=== PATIENT | female | born 1980 | race African-American/Black ===

== ENCOUNTER 2021-06-02 15:32 | Emergency (ER) | payer OTHER, SELFPAY ==
[2021-06-02 15:42] VITALS: BP 104/63; BP 109/91; PULSE 73; PULSE 92; RESP 18; TEMP 36.6; O2SAT 96; O2SAT 98; BMI 30.2
--- NOTE | 2021-06-02 16:02 | ED.GENADULT ---
HPI - General Adult General Chief complaint: General Medical Stated complaint: crisis Time Seen by Provider: 06/02/21 15:47 History of Present Illness HPI narrative: Patient 41 years old presented today with having been picked up by the EMS service. Patient denies any suicidal homicidal ideation. Denies any recreational drug use. She was found next to a crack pipe. She may have drank some alcohol earlier. Patient has no complaints and wants to leave. EMS reports no suicidal homicidal ideation. Related Data Allergies Allergy/AdvReac Type Severity Reaction Status Date / Time divalproex sodium Allergy Mild CAUSES Unverified 05/05/20 17:02 [From DEPAKOTE] HAIR TO FALL OUT morphine [Morphine] Allergy Unknown UNKNOWN Unverified 05/05/20 17:02 clozapine [Clozapine] AdvReac Intermediate SEIZURE Unverified 05/05/20 17:02 Review of Systems Review of Systems: No fever no chills no cough no congestion All systems reviewed otherwise negative PMFSH Past Medical History Attestation statement: The following information was validated with the patient. Physical Exam Vital Signs: Vital Signs: Last Vital Signs Temp 98 F 06/02/21 15:42 Pulse 73 06/02/21 15:42 Resp 18 06/02/21 15:42 BP 104/63 06/02/21 15:42 Pulse Ox 98 06/02/21 15:42 Body Mass Index 30.2 Appearance: Alert. Oriented X3. No acute distress. Eyes: Pupils equal, round and reactive to light. ENT: Pharynx normal. Neck: Normal inspection. Neck supple. No lymph nodes noted. No crepitus CVS: Normal heart rate and rhythm. Pulses normal. Normal S1 and S2 Respiratory: No respiratory distress. Breath sounds normal. No Wheezing. No rales Abdomen: Soft and nontender. No rigidity. No distention. good BS x4 Skin: Skin warm and dry. Normal skin color. Normal skin turgor. Extremities: No lower extremity edema. Neurovascular intact to all extremities. No Lacerations. No Rash Neuro: Oriented X 3. No motor deficit. No sensory deficit. Moving all extermities. No slurred speech Medical Decision Making MDM Narrative Medical decision making narrative: No suicidal homicidal ideation. Patient awake alert oriented ambulate with a normal gait. Clinically sober. Wants to go home. Has no complaints. In stable condition. Discharge Plan Discharge Clinical Impression: Alcohol intoxication Patient Disposition: Home, Self-Care Instructions: Alcohol Intoxication (ED) Referrals: [facility] [Provider Group] - 2 days
== END 2021-06-02 16:20 | disposition home or self-care (01) ==
LOC: HO.ED 16:17
PROVIDERS: Emergency Provider Emergency Medicine Emergency Medical Services
DX: F10.129 Alcohol abuse with intoxication, unspecified (principal); Y90.9 Presence of alcohol in blood, level not specified
CPT/HCPCS: 99282

== ENCOUNTER 2021-11-13 19:39 | Inpatient (IN) | payer OTHER, SELFPAY ==
--- NOTE | ~2021-11-13 | CT_ITS ---
EXAMINATION: CT HEAD WITHOUT CONTRAST CLINICAL INFORMATION: Altered mental status. COMPARISON: Head CT from 05/22/2014. TECHNIQUE: Contiguous axial imaging was performed from the skull base to vertex without intravenous administration of contrast. This CT examination was performed using dose optimization techniques as appropriate, variously including the following: *Automated exposure control *Adjustment of mA and/or kV according to patient size (this includes techniques or standardized protocols for targeted exams where dose is matched to indication/reason for exam; i.e. extremities or head) *Use of iterative reconstruction technique DLP: 612 mGy-cm FINDINGS: There is no evidence of acute intracranial hemorrhage or territorial infarction. No abnormal mass effect or midline shift is seen. Hernandez to white matter differentiation is well preserved. No extra-axial fluid collections are identified. The ventricles are normal in size. Chronic encephalomalacia again visible in the anteroinferior frontal lobes and in the left temporal pole. The osseous structures and soft tissues are normal. The mastoid air cells and visualized portions of the paranasal sinuses are well aerated. CT/CT head/brain wo con IMPRESSION: No acute intracranial hemorrhage or territorial infarction. 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 Query for any history of prior traumatic brain injury to account for these imaging findings.
[2021-11-13 19:53] VITALS: BP 124/84; PULSE 80; RESP 17; TEMP 36.6; O2SAT 97; BMI 21.2
--- NOTE | 2021-11-13 20:08 | ED.PSYCH ---
HPI - Psych General Chief Complaint: Psychiatric Symptoms Stated Complaint: SEC 12 Time Seen by Provider: 11/13/21 19:56 Source: EMS Mode of arrival: EMS Limitations: other (Unwilling to talk) History of Present Illness HPI Narrative: Patient comes to the emergency room via EMS from a [facility]. [facility] evaluated the patient in the field and Section 12 the patient. Seems that the patient has been gradually decompensating, unable to engage in daily activities. Patient is unwilling to talk. Related Data Allergies Allergy/AdvReac Type Severity Reaction Status Date / Time divalproex sodium Allergy Mild CAUSES Unverified 05/05/20 17:02 [From DEPAKOTE] HAIR TO FALL OUT morphine [Morphine] Allergy Unknown UNKNOWN Unverified 05/05/20 17:02 clozapine [Clozapine] AdvReac Intermediate SEIZURE Unverified 05/05/20 17:02 Review of Systems Review of Systems: Unwilling to talk Yes Other [facility] Past Medical History Medical History (Updated 11/13/21 @ 20:14 by Yamilka Vicente MD) Depression, unspecified Social History Social History Patient : No Physical Exam Vital Signs: Vital Signs: Last Vital Signs Temp 98 F 11/13/21 19:53 Pulse 80 11/13/21 19:53 Resp 17 11/13/21 19:53 BP 124/84 11/13/21 19:53 Pulse Ox 97 11/13/21 19:53 BMI result Body Mass Index 21.2 Const: Other: Appearance: Alert. No acute distress, unwilling to talk Eyes: Pupils equal, round and reactive to light. ENT: Pharynx normal. Neck: Normal inspection. Neck supple. No lymph nodes noted. No crepitus CVS: Normal heart rate and rhythm. Respiratory: No respiratory distress. Breath sounds normal. Abdomen: Soft, Bueno nondistended Skin: Skin warm and dry. Normal skin color. Normal skin turgor. Extremities: Moves all extremities Neuro: No motor deficit. No sensory deficit. Moving all extremities. No slurred speech. CN 2 through 12 grossly intact Psych: calm, unwilling to talk, POD staff trying to have the patient exchange architect to hospital clothes, pt partially following instructions, unwilling to remove socks Course Course Course Narrative: Patient was Sectioned 12 by [facility] in the field. At this time, patient is unwilling to talk. Disposition pending, likely to be inpatient bed search. Physician observation started at 20:14 Sign-out given to Dr. Armas Discharge Plan Discharge Clinical Impression: Depression Patient Disposition: Still a Patient
[2021-11-13 20:20] LABS: Appearance Urine CLOUDY; Color Urine YELLOW; Glucose Urine UA NEG (NEG); Leukocyte Esterase Urine 2+ (NEG); Nitrite Urine NEG (NEG); Specific Gravity - Urine 1.015 (1.005-1.025); Urine Blood NEG (NEG); Urine Ketones NEG (NEG); Urine Protein NEG (NEG-TRACE)
[2021-11-13 20:22] LABS: UPreg QC Valid YES; Urine Pregnancy NEGATIVE (NEGATIVE)
[2021-11-13 20:32] LABS: Bacteria Urine 2+ /LPF; RBC Urine 0 /HPF (0); Squamous Epithelial Cell Urine 4+ /LPF
[2021-11-13 20:33] LABS: Amorphous Sediment Urine 4+ /LPF; COVID-19 Test Negative (Negative); Mucus Urine 3+ /LPF
[2021-11-13 20:38] LABS: Amphetamine Screen Urine Not Detected (Not Detect); Barbiturates, Urine Not Detected (Not Detect); Benzodiazepines Screen Urine Not Detected (Not Detect); Cannabinoid Screen Urine Not Detected (Not Detect); Cocaine Screen Urine Not Detected (Not Detect); Fentanyl, urine Not Detected (Not Detect); Opiate Screen Urine Not Detected (Not Detect); Phencyclidine Screen Urine Not Detected (Not Detect)
[2021-11-13 23:33] VITALS: BP 101/68; PULSE 58; RESP 18; TEMP 37; O2SAT 95
--- NOTE | 2021-11-14 | ECG_ITS ---
Test Reason : MED CLEARANCE Blood Pressure : / mmHG Vent. Rate : 046 BPM Atrial Rate : 046 BPM P-R Int : 142 ms QRS Dur : 092 ms QT Int : 448 ms P-R-T Axes : 050 055 046 degrees QTc Int : 392 ms Sinus bradycardia Possible Anterior infarct , age undetermined Abnormal ECG When compared with ECG of 05-SEP-2015 20:07, T wave inversion now evident in Anterior leads QT has shortened Referred By: Giovanni Coles Electronically Signed By:ALPHONSO RODRIGUEZ
--- NOTE | 2021-11-14 05:18 | PC.NURSE ---
Patient slept through the night, no distress observed/reported, behavior quiet, cooperative, and non concerning, called placed to residential/left voicemail to call us back with medication list/awaiting phone call, pharmacy claim history is not current, patient was seen by [facility] in the community, disposition section 12 inpatient bed search, VSS, will continue to monitor.
--- NOTE | 2021-11-14 07:24 | PC.NURSE ---
patient appears to remain asleep at present, respirations are even and unlabored patient appears in no distress
[2021-11-14 14:57] LABS: MANUAL DIFF FLAG NO
--- NOTE | 2021-11-14 15:11 | PC.NURSE ---
JEMMA informed this adjusto writer operator that clients gibson order had earlier in the month. I informed crisis person I would document in chart and relay information.
[2021-11-14 15:17] LABS: Basophils Percent Auto 0.4 % (0-2); Eosinophils Absolute Auto 0.1 X10*3/uL (0.0-0.4); Eosinophils Percent Auto 1.1 % (0-4); Hematocrit 39.3 % (37.0-47.0); Hemoglobin 12.8 g/dl (12.0-16.0); Imm Gran Abs Auto 0.04 X10*3/uL (0.00-0.03); Imm Gran Pct Auto 0.4 % (0.0-0.4); Lymphocytes Absolute Auto 2.3 X10*3/uL (1.2-4.9); Lymphocytes Percent Auto 25.2 % (20-40); Mean Corpuscular HGB Conc 32.6 g/dl (31.0-35.0); Mean Corpuscular Hemoglobin 29.2 pg (27.0-33.0); Mean Corpuscular Volume 89.5 fL (80.0-98.0); Mean Platelet Volume 12.7 fL (9.4-12.3); Monocytes Absolute Auto 0.6 X10*3/uL (0.1-1.2); Monocytes Percent Auto 6.6 % (2-11); Neutrophils Percent Auto 66.3 % (45-73); Platelet Count 203 X10*3/uL (160-400); Red Blood Count 4.39 X10*6/uL (4.20-5.50); Red Cell Distribution Width 12.6 % (11.0-16.0); White Blood Count 9.1 X10*3/uL (4.8-10.8)
[2021-11-14 15:28] LABS: Alanine Aminotransferase 8 U/L (0-31); Albumin Level 3.9 g/dL (3.5-5.0); Alkaline Phosphatase 71 U/L (39-117); Anion Gap 10 (12-20); Aspartate Amino Transferase 12 U/L (5-31); Bilirubin Total 0.3 mg/dL (0.0-1.0); Blood Urea Nitrogen 11 mg/dL (9-16); Calcium 9.1 mg/dL (8.4-10.2); Carbon Dioxide 25 mmol/L (22-29); Chloride 107 mmol/L (96-108); Creatinine Clr Calc Pharmacy 91.8; Estimated Glomerular Filt Rate > 60; Glucose Random 77 mg/dL (60-115); Sodium 137 mmol/L (135-145); Total Protein 6.6 g/dL (6.5-8.0)
[2021-11-14 16:57] VITALS: BP 104/66; PULSE 62; RESP 18; TEMP 37.3; O2SAT 99
--- NOTE | 2021-11-14 19:23 | PC.NURSE ---
shelter called x2 to attempt verification of medications: [phone]. Voicemail left x2. Awaiting return call.
[2021-11-14 22:17] VITALS: BP 112/68; PULSE 63; RESP 16; TEMP 36.4; O2SAT 97
--- NOTE | 2021-11-15 03:51 | PC.ADMIT ---
Addendum entered by Juana Dobbins RN 11/15/21 04:32: Raphael Soriano MD aware of admission. call center manager psychiatrist orders in before 2nd shift began. Original Note: Pt is 41 y.o. female admitted to the unit from the ED at [facility] after referral from [facility]. Arrived on unit at 20:30 11/14/21. Legal status: 12B. Pt medical hx is Asthma, Amenorrhea and current UTI. Pt is covid negative as of 11/13. Pt was unable to stay awake long enough to complete the admission process. When asked questions, pt would not respond and appeared to be sleeping. Per crisis assessment, pt has hx of crack/cocaine use with last use documented as being last week. Urine tox came back negative for everything. Pt has lost 80lbs in 3 months, has been exhibiting sx of catatonia and has also been urinating in her bed as well as not attending to ADL's. Pt has been not taking medications or engaging in tx. Pt presents as disheveled, extremely thin, appeared with depressed and apathetic affect. Upon arrival to room on unit, pt laid on bed and slept almost immediately. Pt has had many IPLOC and CCS Admissions. Raphael Soriano MD aware and orders obtained. Placed on 15 minute safety checks. Pt unable to complete admission as she fell asleep and does not respond to questions. VS were stable.
[2021-11-15 08:53] VITALS: BP 95/57; PULSE 79; RESP 16; TEMP 36.6; O2SAT 96
[2021-11-15 08:53] LABS: Estimated Average Glucose 91 mg/dL; Hemoglobin A1c % 4.8 %
[2021-11-15 08:58] LABS: Cholesterol 223 mg/dL; HDL Cholesterol 46 mg/dL; LDL Cholesterol Calculated 157 mg/dl; Triglycerides 103 mg/dL
--- NOTE | 2021-11-15 09:06 | PC.NURSE ---
Patient refused flu shot.
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
[2021-11-15] MEDS: LORazepam 1 MG TABLET PO ×3 (09:13→20:07)
--- NOTE | 2021-11-15 12:31 | PC.NURSE ---
VS taken 98.7, 81HR, 82/52, RR16. [facility] Patient difficult to wake up.
--- NOTE | 2021-11-15 12:39 | PC.NURSE ---
Patient reports she is a smoker, approx 1/2 pack per day. Declined nicotine patch or gum at this time.
--- NOTE | 2021-11-15 13:57 | PC.NURSE ---
Patient refused CT scan stating she did not want to. Kimberly Sotelo APRN notified.
[2021-11-15 15:06] VITALS: BMI 21.2
[2021-11-15] MEDS: Acetaminophen 325 MG TABLET 650 MG PO (20:07)
[2021-11-15 20:09] VITALS: BP 107/74; PULSE 79; TEMP 36.6; O2SAT 97
[2021-11-16 08:00] VITALS: BP 116/66; PULSE 105; RESP 16; TEMP 36.7; O2SAT 97
[2021-11-16] MEDS: LORazepam 1 MG TABLET PO (08:37)
[2021-11-16 09:04] LABS: Ammonia 24 umol/L (13-55)
[2021-11-16 09:06] LABS: D Dimer High Sensitivity < 150 NG/ML
[2021-11-16 09:19] LABS: Anion Gap 14 (12-20); Blood Urea Nitrogen 15 mg/dL (9-16); Calcium 9.7 mg/dL (8.4-10.2); Carbon Dioxide 23 mmol/L (22-29); Chloride 106 mmol/L (96-108); Creatinine Clr Calc Pharmacy 93.2; Estimated Glomerular Filt Rate > 60; Glucose Random 104 mg/dL (60-115); Potassium 4.6 mmol/L (3.3-5.1); Sodium 138 mmol/L (135-145)
[2021-11-16 09:29] LABS: HIV AB/AG Nonreactive (Nonreactive); HIV Num 1 0.09 S/CO (0.00-0.99)
[2021-11-16 09:33] LABS: HBS Num1 > 1000.00 mIU/mL (0-7.99); HBc Num1 9.67 S/CO (0.00-0.79); HBsAGNum1 0.47 S/CO (0.00-0.99); Hepatitis B Surface Antigen Negative (Negative); ~Hepatitis B Surface Antibody REACTIVE (Nonreactive)
[2021-11-16 09:36] LABS: ~HepC Num1 0.25 S/CO (0.00-0.79); ~Hepatitis C Antibody Nonreactive (Nonreactive)
[2021-11-16 10:00] VITALS: BMI 16.0
--- NOTE | 2021-11-16 11:15 | P.PNPSI_ITS ---
Subjective Subjective Date of Service: 11/16/21 Reason For Visit: Disorganized speech/behavior Subjective Notes: Section 12B Interim History: Pt more talkative after ativan. Pt reports she has been sad, reports family member may be dying. When asked who, she states my grandmother. She states she has not seen her but hears her voice. When told that she is here because she has not been talking much nor interacting in the community she states oh yes, I was sad. She denies SI/HI. She asks when she will go back home. Medication Compliance: Yes Side effects from medications: No Attending Groups: No Review of Systems Review of Systems Unwilling to talk Yes Unobtainable due to mental status and Other Mental Status Exam Mental Status Exam Narrative: Appearance: malnourish, thin, poor hygiene, more alert Behavior:cooperative psychomotor:less retardation noted Speech:mostly clear, soft tone, some delayed response, more spontaneous Thought process: thought blocking Thought content: wanting to go home, states she is sad Mood: sad Affect: constricted SI:denies HI: denies VH/AH:appears internally preoccupied Delusions:no overt reports Insight/judgment:impaired x 2. Memory/cog: alert, impaired s/s to psychiatric symptoms. Diagnostics Vital Signs (24Hr): Vital Signs - 24 hr 11/16/21 21:05 11/17/21 08:15 Temperature 97.9 F 97.8 F Pulse Rate 92 63 Respiratory Rate 16 Blood Pressure 91/60 119/79 Pulse Oximetry 98 98 BMI result Body Mass Index 16.0 Labs Results: 11/14/21 14:52 11/16/21 08:34 Labs: Laboratory Results - last 48 hr 11/16/21 11/16/21 11/16/21 08:34 08:34 08:34 D-Dimer High Sensitivty < 150 Sodium Potassium Chloride Carbon Dioxide Anion Gap BUN Creatinine Estim Creat Clear Calc Estimated GFR Random Glucose Calcium Ammonia 24 T.pallidum Ab (EIA) Hepatitis A IgM Ab Nonreactive Hep Bs Antigen Negative Hep Bs Antibody REACTIVE Hep B Core Total Ab Reactive Hep B Core IgM Ab Cancelled Hepatitis C Ab (EIA) Nonreactive HIV 1&2 Ab/P24 Ag 4thGn 11/16/21 11/16/21 11/16/21 08:34 08:34 08:34 D-Dimer High Sensitivty Sodium 138 Potassium 4.6 Chloride 106 Carbon Dioxide 23 Anion Gap 14 BUN 15 Creatinine 0.65 Estim Creat Clear Calc 93.2 Estimated GFR > 60 Random Glucose 104 Calcium 9.7 D Ammonia T.pallidum Ab (EIA) Nonreactive Hepatitis A IgM Ab Hep Bs Antigen Hep Bs Antibody Hep B Core Total Ab Hep B Core IgM Ab Hepatitis C Ab (EIA) HIV 1&2 Ab/P24 Ag 4thGn Nonreactive Imaging Radiology Impressions: ITS Impressions Head CT 11/15/21 16:29 IMPRESSION: No acute intracranial hemorrhage or territorial infarction. 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 Query for any history of prior traumatic brain injury to account for these imaging findings. Medications Medications Current Medications Acetaminophen (Acetaminophen 325 Mg Tablet) 650 mg PO Q6H PRN PRN Reason: Headache/Pain Mild Scale (1-3) Last Admin: 11/15/21 20:07 Dose: 650 mg Documented by: Al Hydroxide/Mg Hydroxide (Magnesium Hydrox/Alum Hydrox 30 Ml Oral.Susp) 30 ml PO Q6H PRN PRN Reason: Heartburn/Nausea Cefuroxime Axetil (Cefuroxime Axetil 250 Mg Tablet) 250 mg PO BID [facility] Stop: 11/21/21 22:59 Last Admin: 11/17/21 08:26 Dose: 250 mg Documented by: Lorazepam (Lorazepam 1 Mg Tablet) 2 mg PO TID [facility] Last Admin: 11/17/21 08:26 Dose: 2 mg Documented by: Magnesium Hydroxide (Milk Of Magnesia 30 Ml Oral.Susp) 30 ml PO DAILY PRN PRN Reason: Constipation Trazodone HCl (Trazodone Hcl 50 Mg Tablet) 50 mg PO BEDTIME PRN PRN Reason: Insomnia Allergies Allergies Allergy/AdvReac Type Severity Reaction Status Date / Time divalproex sodium Allergy Mild CAUSES Unverified 05/05/20 17:02 [From DEPAKOTE] HAIR TO FALL OUT morphine [Morphine] Allergy Unknown UNKNOWN Unverified 05/05/20 17:02 clozapine [Clozapine] AdvReac Intermediate SEIZURE Unverified 05/05/20 17:02 Assessment & Plan Assessment & Plan (1) Schizoaffective disorder with good prognostic features and with catatonia: Status: Acute Code(s): F25.9 - Schizoaffective disorder, unspecified; 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 Kapoor is a 41 year-old woman with extensive hx of inpatient psych hospitalizations including in long term care administrator state psych facilities. MS. Kapoor was brought to [facility] due to increase ability to care for herself, progressively becoming non verbal, mostly in her bed. This singer songwriter order head ct- which did not show acute finding. Pt started on ativan for catatonia. Will monitor labs (due to poor intake), intake, mobility (monitor DVT prevention as not moving much). PLAN 1. admit to M3, section 12b, 15 minutes checks 2. increase ativan to 2mg po TID- 3. used to be on paliperidone with good effect per OP psych provider- Fernando Snowden 4. Coordination of care with outpatient providers, family and resources. I spent __25____ minutes with the patient and/or on the patient floor today, greater than?50% of which was spent counseling/coordinating care. Reason for contiued inpatient stay Substantial Risk for: inability to function
[2021-11-16 11:34] LABS: HBc Num2 9.28 S/CO; HBc Num3 9.44 S/CO; Hepatitis B Core Antibody Reactive (Nonreactive)
[2021-11-16] MEDS: LORazepam 1 MG TABLET 2 MG PO ×2 (15:51→20:49)
[2021-11-16 21:05] VITALS: BP 91/60; PULSE 92; RESP 16; TEMP 36.6; O2SAT 98
[2021-11-17 08:08] LABS: Syphilis Screen Nonreactive (Nonreactive)
[2021-11-17 08:15] VITALS: BP 119/79; PULSE 63; TEMP 36.6; O2SAT 98
[2021-11-17] MEDS: LORazepam 1 MG TABLET 2 MG PO ×3 (08:26→20:05)
[2021-11-17 08:35] LABS: ~Hepatitis A Antibody IgM Nonreactive (Nonreactive)
--- NOTE | 2021-11-17 11:19 | HO.PSYCHPN ---
Subjective Subjective Date of Service: 11/17/21 Reason For Visit: Disorganized speech/behavior Subjective Notes: Section 7 Interim History: Pt more talkative and alert with ativan. Pt asks when she can go home. Her orientation slightly improved in that she states she knows she is in hospital in [place], does not know year nor why she is here. Pt then stated I'm just waiting for my dinner. Pt reminded is early in morning- she just had breakfast. Per nursing, pt slept through the night, did take 3 showers last night but this morning she states she can't take shower because there is no hot water. She denies SI/HI. She appears internally preoccupied. Pt incontinent of both bowel and urine- unclear if this is new. She appeared disorganized and had smear feces on wall. Medication Compliance: Yes Side effects from medications: No Attending Groups: No Review of Systems Acute medical concerns: No Review of Systems Review of Systems Unwilling to talk Yes Unobtainable due to mental status and Other Mental Status Exam Mental Status Exam Narrative: Appearance: malnourish, thin, poor hygiene, more alert Behavior:cooperative psychomotor:less retardation noted Speech:mostly clear, soft tone, some delayed response, more spontaneous Thought process: thought blocking Thought content: wanting to go home, states she is sad Mood: sad Affect: constricted SI:denies HI: denies VH/AH:appears internally preoccupied Delusions:no overt reports Insight/judgment:impaired x 2. Memory/cog: alert, impaired s/s to psychiatric symptoms. Diagnostics Vital Signs (24Hr): Vital Signs - 24 hr 11/16/21 21:05 11/17/21 08:15 Temperature 97.9 F 97.8 F Pulse Rate 92 63 Respiratory Rate 16 Blood Pressure 91/60 119/79 Pulse Oximetry 98 98 BMI result Body Mass Index 16.0 Labs Results: 11/14/21 14:52 11/16/21 08:34 Labs: Laboratory Results - last 48 hr 11/16/21 11/16/21 11/16/21 08:34 08:34 08:34 D-Dimer High Sensitivty < 150 Sodium Potassium Chloride Carbon Dioxide Anion Gap BUN Creatinine Estim Creat Clear Calc Estimated GFR Random Glucose Calcium Ammonia 24 T.pallidum Ab (EIA) Hepatitis A IgM Ab Nonreactive Hep Bs Antigen Negative Hep Bs Antibody REACTIVE Hep B Core Total Ab Reactive Hep B Core IgM Ab Cancelled Hepatitis C Ab (EIA) Nonreactive HIV 1&2 Ab/P24 Ag 4thGn 11/16/21 11/16/21 11/16/21 08:34 08:34 08:34 D-Dimer High Sensitivty Sodium 138 Potassium 4.6 Chloride 106 Carbon Dioxide 23 Anion Gap 14 BUN 15 Creatinine 0.65 Estim Creat Clear Calc 93.2 Estimated GFR > 60 Random Glucose 104 Calcium 9.7 D Ammonia T.pallidum Ab (EIA) Nonreactive Hepatitis A IgM Ab Hep Bs Antigen Hep Bs Antibody Hep B Core Total Ab Hep B Core IgM Ab Hepatitis C Ab (EIA) HIV 1&2 Ab/P24 Ag 4thGn Nonreactive Imaging Radiology Impressions: ITS Impressions Head CT 11/15/21 16:29 IMPRESSION: No acute intracranial hemorrhage or territorial infarction. 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 Query for any history of prior traumatic brain injury to account for these imaging findings. Medications Medications Current Medications Acetaminophen (Acetaminophen 325 Mg Tablet) 650 mg PO Q6H PRN PRN Reason: Headache/Pain Mild Scale (1-3) Last Admin: 11/15/21 20:07 Dose: 650 mg Documented by: Al Hydroxide/Mg Hydroxide (Magnesium Hydrox/Alum Hydrox 30 Ml Oral.Susp) 30 ml PO Q6H PRN PRN Reason: Heartburn/Nausea Cefuroxime Axetil (Cefuroxime Axetil 250 Mg Tablet) 250 mg PO BID [facility] Stop: 11/21/21 22:59 Last Admin: 11/17/21 08:26 Dose: 250 mg Documented by: Lorazepam (Lorazepam 1 Mg Tablet) 2 mg PO TID [facility] Last Admin: 11/17/21 08:26 Dose: 2 mg Documented by: Magnesium Hydroxide (Milk Of Magnesia 30 Ml Oral.Susp) 30 ml PO DAILY PRN PRN Reason: Constipation Trazodone HCl (Trazodone Hcl 50 Mg Tablet) 50 mg PO BEDTIME PRN PRN Reason: Insomnia Allergies Allergies Allergy/AdvReac Type Severity Reaction Status Date / Time divalproex sodium Allergy Mild CAUSES Unverified 05/05/20 17:02 [From DEPAKOTE] HAIR TO FALL OUT morphine [Morphine] Allergy Unknown UNKNOWN Unverified 05/05/20 17:02 clozapine [Clozapine] AdvReac Intermediate SEIZURE Unverified 05/05/20 17:02 Assessment & Plan Assessment & Plan (1) Schizoaffective disorder with good prognostic features and with catatonia: Status: Acute Code(s): F25.9 - Schizoaffective disorder, unspecified; 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 Kapoor is a 41 year-old woman with extensive hx of inpatient psych hospitalizations including in medical terminologist state psych facilities. MS. Kapoor was brought to [facility] due to increase ability to care for herself, progressively becoming non verbal, mostly in her bed. This designer/writer order head ct- which did not show acute finding. Pt started on ativan for catatonia. Will monitor labs (due to poor intake), intake, mobility (monitor DVT prevention as not moving much). PLAN 1. admit to M3, section 12b, 15 minutes checks 2. increase ativan to 2mg po TID- 3. used to be on paliperidone with good effect per OP psych provider- Fernando Snowden 4. Coordination of care with outpatient providers, family and resources. 4/- s/s of catatonia resolving with ativan, appears internally preoccupied. She does have Baldwin that include Invega Sustenna, Haldol, clozaril, Loxapine, Olanzapine. Per OP provider Paliperidone seemed to be effective. Will start low dose of paliperidone 3mg po daily and monitor s/s worsening symptoms of catatonia. I spent minutes with the patient and/or on the patient floor today, greater than?50% of which was spent counseling/coordinating care. Reason for contiued inpatient stay Substantial Risk for: inability to function
[2021-11-17] MEDS: Paliperidone ER 3 MG TAB.ER.24 PO (14:00)
--- NOTE | 2021-11-17 16:11 | MHC.CLN ---
F/U VISITED WITH PATIENT IN HER ROOM. SAID THAT SHE DRINKS SOME ENSURE. NO OTHER INFORMATION OFFERED. CONTINUE TO MONITOR WEIGHT AND INTAKE.
[2021-11-17 20:02] VITALS: BP 109/67; PULSE 96; RESP 16; TEMP 36.4; O2SAT 98
[2021-11-17] MEDS: Acetaminophen 325 MG TABLET 650 MG PO (20:08)
[2021-11-18] MEDS: Acetaminophen 325 MG TABLET 650 MG PO (07:41)
[2021-11-18 08:00] VITALS: BP 105/65; PULSE 82; RESP 18; TEMP 36.1; O2SAT 98
[2021-11-18] MEDS: Paliperidone ER 3 MG TAB.ER.24 PO (09:09)
[2021-11-18] MEDS: LORazepam 1 MG TABLET 2 MG PO ×3 (09:09→20:19)
--- NOTE | 2021-11-18 18:23 | P.PNPSI_ITS ---
Subjective Subjective Date of Service: 11/18/21 Reason For Visit: Disorganized speech/behavior Interim History: pt seen in her bed, easily rousable. states she would like discharge from the hospital. states she is sleeping well. asks for NRT. otherwise has no questions or complaints for MD. per staff, slept several hours overnight. c/o AH. asking for DC. med-compliant. in need of NRT. Mental Status Exam Mental Status Exam Narrative: Appearance: malnourish, thin, poor hygiene, more alert Behavior:cooperative psychomotor:less retardation noted Speech:mostly clear, soft tone, some delayed response, more spontaneous Thought process: thought blocking Thought content: wanting to go home Affect: constricted Delusions:no overt reports Insight/judgment:impaired x 2. Memory/cog: alert, impaired s/s to psychiatric symptoms. Diagnostics Vital Signs (24Hr): Vital Signs - 24 hr 11/17/21 20:02 11/18/21 08:00 Temperature 97.6 F 96.9 F Pulse Rate 96 82 Respiratory Rate 16 18 Blood Pressure 109/67 105/65 Pulse Oximetry 98 98 BMI result Body Mass Index 16.0 Labs Results: 11/14/21 14:52 11/16/21 08:34 Labs: Laboratory Results - last 48 hr 11/16/21 11/16/21 08:34 08:34 T.pallidum Ab (EIA) Nonreactive Hepatitis A IgM Ab Nonreactive Imaging Radiology Impressions: ITS Impressions Head CT 11/15/21 16:29 IMPRESSION: No acute intracranial hemorrhage or territorial infarction. 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 Query for any history of prior traumatic brain injury to account for these imaging findings. Medications Medications Current Medications Acetaminophen (Acetaminophen 325 Mg Tablet) 650 mg PO Q6H PRN PRN Reason: Headache/Pain Mild Scale (1-3) Last Admin: 11/18/21 07:41 Dose: 650 mg Documented by: Al Hydroxide/Mg Hydroxide (Magnesium Hydrox/Alum Hydrox 30 Ml Oral.Susp) 30 ml PO Q6H PRN PRN Reason: Heartburn/Nausea Cefuroxime Axetil (Cefuroxime Axetil 250 Mg Tablet) 250 mg PO BID [facility] Stop: 11/21/21 22:59 Last Admin: 11/18/21 09:09 Dose: 250 mg Documented by: Lorazepam (Lorazepam 1 Mg Tablet) 2 mg PO TID [facility] Last Admin: 11/18/21 15:35 Dose: 2 mg Documented by: Magnesium Hydroxide (Milk Of Magnesia 30 Ml Oral.Susp) 30 ml PO DAILY PRN PRN Reason: Constipation Nicotine (Nicotine 14 Mg Patch.Td24) 14 mg TRANSDERMA DAILY [facility] Last Admin: 11/18/21 15:36 Dose: Not Given Documented by: Nicotine Polacrilex (Nicotine Polacrilex Lozenge 2 Mg Lozenge) 2 mg BUCCAL Q1H PRN PRN Reason: Nicotine Cravings Paliperidone (Paliperidone Er 3 Mg Tab.Er.24) 3 mg PO DAILY [facility] Last Admin: 11/18/21 09:09 Dose: 3 mg Documented by: Trazodone HCl (Trazodone Hcl 50 Mg Tablet) 50 mg PO BEDTIME PRN PRN Reason: Insomnia Allergies Allergies Allergy/AdvReac Type Severity Reaction Status Date / Time divalproex sodium Allergy Mild CAUSES Unverified 05/05/20 17:02 [From DEPAKOTE] HAIR TO FALL OUT morphine [Morphine] Allergy Unknown UNKNOWN Unverified 05/05/20 17:02 clozapine [Clozapine] AdvReac Intermediate SEIZURE Unverified 05/05/20 17:02 Assessment & Plan Assessment & Plan (1) Schizoaffective disorder with good prognostic features and with catatonia: Status: Acute Code(s): F25.9 - Schizoaffective disorder, unspecified; 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 MS. Kapoor was brought to [facility] due to increase ability to care for herself, progressively becoming non verbal, mostly in her bed. This writer technical publications order head ct- which did not show acute finding. Pt started on ativan for catatonia. Will monitor labs (due to poor intake), intake, mobility (monitor DVT prevention as not moving much). PLAN 1. admit to M3, section 12b, 15 minutes checks 2. increase ativan to 2mg po TID- 3. used to be on paliperidone with good effect per OP psych provider- Fernando Snowden 4. Coordination of care with outpatient providers, family and resources. 4/1- s/s of catatonia resolving with ativan, appears internally preoccupied. She does have Baldwin that include Invega Sustenna, Haldol, clozaril, Loxapine, Olanzapine. Per OP provider Paliperidone seemed to be effective. Will start low dose of paliperidone 3mg po daily and monitor s/s worsening symptoms of catatonia. 11/18 - similar presentation to yesterday, no changes in mgmt. I spent ___20___ minutes with the patient and/or on the patient floor today, greater than?50% of which was spent counseling/coordinating care. Reason for contiued inpatient stay Substantial Risk for: harm to self, inability to function and rapid decom pensation
[2021-11-18 20:17] VITALS: BP 118/69; PULSE 108; RESP 18; TEMP 36.7; O2SAT 96
[2021-11-19] MEDS: LORazepam 1 MG TABLET 2 MG PO ×3 (09:17→21:15)
[2021-11-19] MEDS: Paliperidone ER 3 MG TAB.ER.24 PO (09:18)
[2021-11-19 09:37] VITALS: BP 107/69; PULSE 107; RESP 18; TEMP 36.2; O2SAT 97
--- NOTE | 2021-11-19 16:43 | HO.PSYCHPN ---
Subjective Subjective Date of Service: 11/19/21 Reason For Visit: Disorganized speech/behavior Interim History: pt spending time in milieu today, comes to interview room with . expresses the desire to go home, much more interactive and engaged than previous days. she asks for nicotine patch as well, which is ordered. informs her SW will consult with her long-term staff about conditions for return and they will want to meet with her prior to taking her back, in all likelihood. pt expresses understanding. per staff, perseverative to leave. declining NRT. med-compliant. slept about 7 hours overnight. Mental Status Exam Mental Status Exam Narrative: Appearance: malnourish, thin, poor hygiene, more alert Behavior:cooperative psychomotor:less retardation noted Speech:mostly clear, soft tone, some delayed response, more spontaneous Thought process: less thought blocking Thought content: wanting to go home Affect: constricted Delusions:no overt reports Insight/judgment:impaired x 2. Memory/cog: alert, impaired s/s to psychiatric symptoms. Diagnostics Vital Signs (24Hr): Vital Signs - 24 hr 11/18/21 20:17 11/19/21 09:37 Temperature 98.0 F 97.1 F Pulse Rate 108 H 107 H Respiratory Rate 18 18 Blood Pressure 118/69 107/69 Pulse Oximetry 96 97 BMI result Body Mass Index 16.0 Labs Results: 11/14/21 14:52 11/16/21 08:34 Imaging Radiology Impressions: ITS Impressions Head CT 11/15/21 16:29 IMPRESSION: No acute intracranial hemorrhage or territorial infarction. 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 Query for any history of prior traumatic brain injury to account for these imaging findings. Medications Medications Current Medications Acetaminophen (Acetaminophen 325 Mg Tablet) 650 mg PO Q6H PRN PRN Reason: Headache/Pain Mild Scale (1-3) Last Admin: 11/18/21 07:41 Dose: 650 mg Documented by: Al Hydroxide/Mg Hydroxide (Magnesium Hydrox/Alum Hydrox 30 Ml Oral.Susp) 30 ml PO Q6H PRN PRN Reason: Heartburn/Nausea Cefuroxime Axetil (Cefuroxime Axetil 250 Mg Tablet) 250 mg PO BID [facility] Stop: 11/21/21 22:59 Last Admin: 11/19/21 09:18 Dose: 250 mg Documented by: Lorazepam (Lorazepam 1 Mg Tablet) 2 mg PO TID [facility] Last Admin: 11/19/21 16:12 Dose: 2 mg Documented by: Magnesium Hydroxide (Milk Of Magnesia 30 Ml Oral.Susp) 30 ml PO DAILY PRN PRN Reason: Constipation Nicotine (Nicotine 14 Mg Patch.Td24) 14 mg TRANSDERMA DAILY [facility] Last Admin: 11/19/21 09:27 Dose: Not Given Documented by: Nicotine Polacrilex (Nicotine Polacrilex Lozenge 2 Mg Lozenge) 2 mg BUCCAL Q1H PRN PRN Reason: Nicotine Cravings Paliperidone (Paliperidone Er 3 Mg Tab.Er.24) 3 mg PO DAILY [facility] Last Admin: 11/19/21 09:18 Dose: 3 mg Documented by: Trazodone HCl (Trazodone Hcl 50 Mg Tablet) 50 mg PO BEDTIME PRN PRN Reason: Insomnia Allergies Allergies Allergy/AdvReac Type Severity Reaction Status Date / Time divalproex sodium Allergy Mild CAUSES Unverified 05/05/20 17:02 [From DEPAKOTE] HAIR TO FALL OUT morphine [Morphine] Allergy Unknown UNKNOWN Unverified 05/05/20 17:02 clozapine [Clozapine] AdvReac Intermediate SEIZURE Unverified 05/05/20 17:02 Assessment & Plan Assessment & Plan (1) Schizoaffective disorder with good prognostic features and with catatonia: Status: Acute Code(s): F25.9 - Schizoaffective disorder, unspecified; 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 Kapoor is a 41 year-old woman with extensive hx of inpatient psych hospitalizations including in [facility] psych facilities. MS. Kapoor was brought to [facility] due to increase ability to care for herself, progressively becoming non verbal, mostly in her bed. This credit underwriter order head ct- which did not show acute finding. Pt started on ativan for catatonia. Will monitor labs (due to poor intake), intake, mobility (monitor DVT prevention as not moving much). PLAN 1. admit to M3, section 12b, 15 minutes checks 2. increase ativan to 2mg po TID- 3. used to be on paliperidone with good effect per OP psych provider- Fernando Snowden 4. Coordination of care with outpatient providers, family and resources. 4/1- s/s of catatonia resolving with ativan, appears internally preoccupied. She does have Baldwin that include Invega Sustenna, Haldol, clozaril, Loxapine, Olanzapine. Per OP provider Paliperidone seemed to be effective. Will start low dose of paliperidone 3mg po daily and monitor s/s worsening symptoms of catatonia. 4/ - similar presentation to yesterday, no changes in mgmt. 11/19 - more spontaneous, better socially related. I spent __15____ minutes with the patient and/or on the patient floor today, greater than?50% of which was spent counseling/coordinating care. Reason for contiued inpatient stay Substantial Risk for: inability to function and rapid decompensation
[2021-11-19 18:00] VITALS: BP 108/60; PULSE 90; RESP 18; TEMP 37; O2SAT 97
[2021-11-20] MEDS: LORazepam 1 MG TABLET 2 MG PO ×3 (09:12→22:00)
[2021-11-20] MEDS: Paliperidone ER 3 MG TAB.ER.24 PO (09:12)
[2021-11-20 09:15] VITALS: BP 114/55; PULSE 85; RESP 16; TEMP 36.8; O2SAT 95
--- NOTE | 2021-11-20 12:42 | P.PNPSI_ITS ---
Subjective Subjective Date of Service: 11/20/21 Reason For Visit: Disorganized speech/behavior Interim History: seen in her room as she lay in bed. continues more spontaneous with faster r eaction times. appears to be answering with non-sequiturs, however, and does not seem to comprehend information MD is providing to her, such as the availability of NRT here and that she cannot smoke cigarettes here. talks of looking forward to visiting her mother and buying a cigarette for 10 cents once she leaves. per staff, med-compliant. thought-blocking. wants cigarettes. isolative. declining NRT. slept through the night. Mental Status Exam Mental Status Exam Narrative: Appearance: malnourish, thin, poor hygiene, more alert Behavior:cooperative psychomotor:less retardation noted Speech:mostly clear, soft tone, some delayed response, more spontaneous Thought process: less thought blocking Thought content: wanting to go home Affect: constricted Delusions:no overt reports Insight/judgment:impaired x 2. Memory/cog: alert, impaired s/s to psychiatric symptoms. Diagnostics Vital Signs (24Hr): Vital Signs - 24 hr 11/19/21 18:00 11/20/21 09:15 Temperature 98.6 F 98.2 F Pulse Rate 90 85 Respiratory Rate 18 16 Blood Pressure 108/60 114/55 L Pulse Oximetry 97 95 BMI result Body Mass Index 16.0 Labs Results: 11/14/21 14:52 11/16/21 08:34 Imaging Radiology Impressions: ITS Impressions Head CT 11/15/21 16:29 IMPRESSION: No acute intracranial hemorrhage or territorial infarction. 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 Query for any history of prior traumatic brain injury to account for these imaging findings. Medications Medications Current Medications Acetaminophen (Acetaminophen 325 Mg Tablet) 650 mg PO Q6H PRN PRN Reason: Headache/Pain Mild Scale (1-3) Last Admin: 11/18/21 07:41 Dose: 650 mg Documented by: Al Hydroxide/Mg Hydroxide (Magnesium Hydrox/Alum Hydrox 30 Ml Oral.Susp) 30 ml PO Q6H PRN PRN Reason: Heartburn/Nausea Cefuroxime Axetil (Cefuroxime Axetil 250 Mg Tablet) 250 mg PO BID [facility] Stop: 11/21/21 22:59 Last Admin: 11/20/21 09:12 Dose: 250 mg Documented by: Lorazepam (Lorazepam 1 Mg Tablet) 2 mg PO TID [facility] Last Admin: 11/20/21 09:12 Dose: 2 mg Documented by: Magnesium Hydroxide (Milk Of Magnesia 30 Ml Oral.Susp) 30 ml PO DAILY PRN PRN Reason: Constipation Nicotine (Nicotine 14 Mg Patch.Td24) 14 mg TRANSDERMA DAILY [facility] Last Admin: 11/20/21 09:12 Dose: Not Given Documented by: Nicotine Polacrilex (Nicotine Polacrilex Lozenge 2 Mg Lozenge) 2 mg BUCCAL Q1H PRN PRN Reason: Nicotine Cravings Paliperidone (Paliperidone Er 3 Mg Tab.Er.24) 3 mg PO DAILY [facility] Last Admin: 11/20/21 09:12 Dose: 3 mg Documented by: Trazodone HCl (Trazodone Hcl 50 Mg Tablet) 50 mg PO BEDTIME PRN PRN Reason: Insomnia Allergies Allergies Allergy/AdvReac Type Severity Reaction Status Date / Time divalproex sodium Allergy Mild CAUSES Unverified 05/05/20 17:02 [From DEPAKOTE] HAIR TO FALL OUT morphine [Morphine] Allergy Unknown UNKNOWN Unverified 05/05/20 17:02 clozapine [Clozapine] AdvReac Intermediate SEIZURE Unverified 05/05/20 17:02 Assessment & Plan Assessment & Plan (1) Schizoaffective disorder with good prognostic features and with catatonia: Status: Acute Code(s): F25.9 - Schizoaffective disorder, unspecified; 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 Kapoor is a 41 year-old woman with extensive hx of inpatient psych hospitalizations including in [facility] state psych facilities. MS. Kapoor was brought to [facility] [place] due to increase ability to care for herself, progressively becoming non verbal, mostly in her bed. This technical document writer order head ct- which did not show acute finding. Pt started on ativan for catatonia. Will monitor labs (due to poor intake), intake, mobility (monitor DVT prevention as not moving much). PLAN 1. admit to M3, section 12b, 15 minutes checks 2. increase ativan to 2mg po TID- 3. used to be on paliperidone with good effect per OP psych provider- Fernando Snowden 4. Coordination of care with outpatient providers, family and resources. 4/1- s/s of catatonia resolving with ativan, appears internally preoccupied. She does have Baldwin that include Invega Sustenna, Haldol, clozaril, Loxapine, Olanzapine. Per OP provider Paliperidone seemed to be effective. Will start low dose of paliperidone 3mg po daily and monitor s/s worsening symptoms of catatonia. 11/18 - similar presentation to yesterday, no changes in mgmt. 11/19 - more spontaneous, better socially related. 11/20 - no change from yesterday, continue current mgmt. I spent ___15___ minutes with the patient and/or on the patient floor today, greater than?50% of which was spent counseling/coordinating care. Reason for contiued inpatient stay Substantial Risk for: inability to function and rapid decompensation
--- NOTE | 2021-11-20 15:29 | MHC.CLN ---
F/U PATIENT STATED THAT SHE DRINKS ENSURE SUPPLEMENT. CONTINUE TO PROVIDE ENSURE TID (1050 KCAL, 60 G PROTEIN).
[2021-11-20 18:00] VITALS: BP 106/60; PULSE 95; RESP 16; TEMP 36.8; O2SAT 96
--- NOTE | 2021-11-20 22:40 | PC.NURSE ---
patients bed and clothes were soiled. Linens changed, and patient given new hospital attire to change into. she complied.
[2021-11-21] MEDS: LORazepam 1 MG TABLET 2 MG PO (08:27)
[2021-11-21] MEDS: Paliperidone ER 3 MG TAB.ER.24 PO (08:27)
[2021-11-21 08:41] VITALS: BP 106/70; PULSE 84; RESP 16; TEMP 36.8; O2SAT 98
--- NOTE | 2021-11-21 12:24 | HO.PSYCHPN ---
Subjective Subjective Date of Service: 11/21/21 Reason For Visit: Disorganized speech/behavior Interim History: pt found ambulating in the jones, on her way back to her room. MD accompanies her. MD asks her how she is doing, and she responds that she is calling her mother to come pick her up. MD indicates she won't be leaving today. pt continues to respond with non-sequiturs and responses which otherwise indicate she is unable to comprehend MD's communications or unable to respond appropriately. toward the end of the interview, pt appears to mistake MD for food services worker, as her response to MD's question of if there is anything he can do to help her today is, you got chicken sticks? per staff, asking for cigarette break. sleeping a lot. isolative. denies SI. incontinence last NOC. no HI/AVH. not oriented to place or purpose. slept 8 hrs overnight. Mental Status Exam Mental Status Exam Narrative: Appearance: malnourish, thin, poor hygiene, more alert Behavior:cooperative psychomotor:less retardation noted Speech:mostly clear, soft tone, some delayed response, more spontaneous Thought process: less thought blocking Thought content: wanting to go home Affect: constricted Delusions:no overt reports Insight/judgment:impaired x 2. Memory/cog: alert, impaired s/s to psychiatric symptoms. Diagnostics Vital Signs (24Hr): Vital Signs - 24 hr 11/20/21 18:00 11/21/21 08:41 Temperature 98.2 F 98.2 F Pulse Rate 95 84 Respiratory Rate 16 16 Blood Pressure 106/60 106/70 Pulse Oximetry 96 98 BMI result Body Mass Index 16.0 Labs Results: 11/14/21 14:52 11/16/21 08:34 Imaging Radiology Impressions: ITS Impressions Head CT 11/15/21 16:29 IMPRESSION: No acute intracranial hemorrhage or territorial infarction. 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 Query for any history of prior traumatic brain injury to account for these imaging findings. Medications Medications Current Medications Acetaminophen (Acetaminophen 325 Mg Tablet) 650 mg PO Q6H PRN PRN Reason: Headache/Pain Mild Scale (1-3) Last Admin: 11/18/21 07:41 Dose: 650 mg Documented by: Al Hydroxide/Mg Hydroxide (Magnesium Hydrox/Alum Hydrox 30 Ml Oral.Susp) 30 ml PO Q6H PRN PRN Reason: Heartburn/Nausea Cefuroxime Axetil (Cefuroxime Axetil 250 Mg Tablet) 250 mg PO BID [facility] Stop: 11/21/21 22:59 Last Admin: 11/21/21 08:27 Dose: 250 mg Documented by: Lorazepam (Lorazepam 1 Mg Tablet) 2 mg PO TID [facility] Last Admin: 11/21/21 08:27 Dose: 2 mg Documented by: Magnesium Hydroxide (Milk Of Magnesia 30 Ml Oral.Susp) 30 ml PO DAILY PRN PRN Reason: Constipation Nicotine (Nicotine 14 Mg Patch.Td24) 14 mg TRANSDERMA DAILY [facility] Last Admin: 11/21/21 08:57 Dose: Not Given Documented by: Nicotine Polacrilex (Nicotine Polacrilex Lozenge 2 Mg Lozenge) 2 mg BUCCAL Q1H PRN PRN Reason: Nicotine Cravings Paliperidone (Paliperidone Er 3 Mg Tab.Er.24) 3 mg PO DAILY [facility] Last Admin: 11/21/21 08:27 Dose: 3 mg Documented by: Trazodone HCl (Trazodone Hcl 50 Mg Tablet) 50 mg PO BEDTIME PRN PRN Reason: Insomnia Allergies Allergies Allergy/AdvReac Type Severity Reaction Status Date / Time divalproex sodium Allergy Mild CAUSES Unverified 05/05/20 17:02 [From DEPAKOTE] HAIR TO FALL OUT morphine [Morphine] Allergy Unknown UNKNOWN Unverified 05/05/20 17:02 clozapine [Clozapine] AdvReac Intermediate SEIZURE Unverified 05/05/20 17:02 Assessment & Plan Assessment & Plan (1) Schizoaffective disorder with good prognostic features and with catatonia: Status: Acute Code(s): F25.9 - Schizoaffective disorder, unspecified; 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 Kapoor is a 41 year-old woman with extensive hx of inpatient psych hospitalizations including in [facility] state psych facilities. MS. Kapoor [place] [facility] [place] to increase ability to care for herself, progressively becoming non verbal, mostly in her bed. This fiction and nonfiction prose writer order head ct- which did not show acute finding. Pt started on ativan for catatonia. Will monitor labs (due to poor intake), intake, mobility (monitor DVT prevention as not moving much). PLAN 1. admit to M3, section 12b, 15 minutes checks 2. increase ativan to 2mg po TID- 3. used to be on paliperidone with good effect per OP psych provider- Fernando Snowden 4. Coordination of care with outpatient providers, family and resources. 4/- s/s of catatonia resolving with ativan, appears internally preoccupied. She does have Baldwin that include Invega Sustenna, Haldol, clozaril, Loxapine, Olanzapine. Per OP provider Paliperidone seemed to be effective. Will start low dose of paliperidone 3mg po daily and monitor s/s worsening symptoms of catatonia. 4/2 - similar presentation to yesterday, no changes in mgmt. 4/3 - more spontaneous, better socially related. 4/4 - no change from yesterday, continue current mgmt. 4/5 - no change. I spent ___15___ minutes with the patient and/or on the patient floor today, greater than?50% of which was spent counseling/coordinating care. Reason for contiued inpatient stay Substantial Risk for: inability to function and rapid decompensation
[2021-11-21 21:38] VITALS: BP 115/72; PULSE 94; TEMP 36.6; O2SAT 97
[2021-11-22 08:22] VITALS: BP 85/54; PULSE 77; RESP 16; TEMP 36.7; O2SAT 98
[2021-11-22] MEDS: Paliperidone ER 3 MG TAB.ER.24 PO (08:23)
--- NOTE | 2021-11-22 15:37 | MHC.CLN ---
F/U ATTEMPTED TO VISIT PATIENT. COVERED FROM HEAD TO TOE WITH BLANKET. APPEARED TO BE ASLEEP. WEIGHT REVIEW SHOWS LARGE DISCREPANCY BETWEEN WEIGHT ON 11/13 AND WEIGHT ON 11/16. ANTICIPATE NEW WEIGHT 11/[address] WILL REVIEW. STAFF REPORTS NO CONCERN WITH INTAKE AT MEALS. CONTINUE REGULAR DIET WITH ENSURE TID.
--- NOTE | 2021-11-22 17:44 | HO.PSYCHPN ---
Subjective Subjective Date of Service: 11/22/21 Reason For Visit: Disorganized speech/behavior Interim History: Patient seen and discussed with team. Patient evaluated today and upon interview pt reports she feels tired. She is found in her room wearing pajamas, has stuffed animal next to her. She just ate dinner. Per pt, she is waiting for a phone call. Says she wants to go back home and asks do you know what day im leaving? Otherwise, pt is unable to respond to most questions and appears thought blocked. In the milieu, patient is isolative in behavior. Denies SI/SIB/HI upon inquiry. Says she feels safe. Attending Groups: No Review of Systems Acute medical concerns: No Medical Review of Systems: unchanged Mental Status Exam Mental Status Exam Narrative: Appearance: malnourish, thin, poor hygiene, more alert Behavior:cooperative psychomotor:less retardation noted Speech:mostly clear, soft tone, continues to have delayed response Thought process: less thought blocking Thought content: wanting to go home Affect: constricted Delusions:no overt reports Insight/judgment:impaired x 2. Memory/cog: alert, impaired s/s to psychiatric symptoms. Diagnostics Vital Signs (24Hr): Vital Signs - 24 hr 11/22/21 08:22 11/22/21 21:12 Temperature 98.1 F 98.1 F Pulse Rate 77 85 Respiratory Rate 16 Blood Pressure 85/54 L 109/60 Pulse Oximetry 98 96 BMI result Body Mass Index 16.0 Labs Results: 11/14/21 14:52 11/16/21 08:34 Imaging Radiology Impressions: ITS Impressions Head CT 11/15/21 16:29 IMPRESSION: No acute intracranial hemorrhage or territorial infarction. 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 Query for any history of prior traumatic brain injury to account for these imaging findings. Medications Medications Current Medications Acetaminophen (Acetaminophen 325 Mg Tablet) 650 mg PO Q6H PRN PRN Reason: Headache/Pain Mild Scale (1-3) Last Admin: 11/18/21 07:41 Dose: 650 mg Documented by: Al Hydroxide/Mg Hydroxide (Magnesium Hydrox/Alum Hydrox 30 Ml Oral.Susp) 30 ml PO Q6H PRN PRN Reason: Heartburn/Nausea Magnesium Hydroxide (Milk Of Magnesia 30 Ml Oral.Susp) 30 ml PO DAILY PRN PRN Reason: Constipation Nicotine (Nicotine 14 Mg Patch.Td24) 14 mg TRANSDERMA DAILY [facility] Last Admin: 11/22/21 08:24 Dose: Not Given Documented by: Nicotine Polacrilex (Nicotine Polacrilex Lozenge 2 Mg Lozenge) 2 mg BUCCAL Q1H PRN PRN Reason: Nicotine Cravings Paliperidone (Paliperidone Er 3 Mg Tab.Er.24) 3 mg PO DAILY [facility] Last Admin: 11/22/21 08:23 Dose: 3 mg Documented by: Trazodone HCl (Trazodone Hcl 50 Mg Tablet) 50 mg PO BEDTIME PRN PRN Reason: Insomnia Allergies Allergies Allergy/AdvReac Type Severity Reaction Status Date / Time divalproex sodium Allergy Mild CAUSES Unverified 05/05/20 17:02 [From DEPAKOTE] HAIR TO FALL OUT morphine [Morphine] Allergy Unknown UNKNOWN Unverified 05/05/20 17:02 clozapine [Clozapine] AdvReac Intermediate SEIZURE Unverified 05/05/20 17:02 Assessment & Plan Assessment & Plan (1) Schizoaffective disorder with good prognostic features and with catatonia: Status: Acute Code(s): F25.9 - Schizoaffective disorder, unspecified; 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 Kapoor is a 41 year-old woman with extensive hx of inpatient psych hospitalizations including in nursing home state psych facilities. MS. Kapoor was brought to [facility] due to increase ability to care for herself, progressively becoming non verbal, mostly in her bed. 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 Pt started on ativan for catatonia. Will monitor labs (due to poor intake), intake, mobility (monitor DVT prevention as not moving much). PLAN 1. admit to M3, section 12b, 15 minutes checks 2. increase ativan to 2mg po TID- 3. used to be on paliperidone with good effect per OP psych provider- Fernando Snowden 4. Coordination of care with outpatient providers, family and resources. /- s/s of catatonia resolving with ativan, appears internally preoccupied. She does have Baldwin that include Invega Sustenna, Haldol, clozaril, Loxapine, Olanzapine. Per OP provider Paliperidone seemed to be effective. Will start low dose of paliperidone 3mg po daily and monitor s/s worsening symptoms of catatonia. 4/2 - similar presentation to yesterday, no changes in mgmt. / - more spontaneous, better socially related. 44 - no change from yesterday, continue current mgmt. 11/21 - no change. 6- continue current med regimen, thought blocking, slowed I spent minutes with the patient and/or on the patient floor today, greater than?50% of which was spent counseling/coordinating care. Patient educated on: therapeutic strategies Reason for contiued inpatient stay Substantial Risk for: inability to function and med/psych decompensation
[2021-11-22 21:12] VITALS: BP 109/60; PULSE 85; TEMP 36.7; O2SAT 96
[2021-11-23] MEDS: Paliperidone ER 3 MG TAB.ER.24 PO (09:19)
[2021-11-23 09:24] VITALS: BP 90/51; PULSE 73; RESP 17; TEMP 36.8; O2SAT 97
--- NOTE | 2021-11-23 11:52 | P.PNPSI_ITS ---
Subjective Subjective Date of Service: 11/23/21 Reason For Visit: Disorganized speech/behavior Subjective Notes: Baldwin Order and Section 7 Interim History: Patient seen and discussed with team. Patient mostly in her room, incontinent of stool and urine, which apparently not her usual at . Pt reports she is tired, sleepy but also asks when she can go home. Pt denies SI/HI. Minimally interactive with peers or staff. poor self care, thought blocking. Medication Compliance: Yes Side effects from medications: No Review of Systems Review of Systems Unwilling to talk Yes Unobtainable due to mental status and Other Mental Status Exam Mental Status Exam Narrative: Appearance: malnourish, thin, poor hygiene, more alert Behavior:cooperative psychomotor:less retardation noted Speech:mostly clear, soft tone, continues to have delayed response Thought process: less thought blocking Thought content: wanting to go home Affect: constricted Delusions:no overt reports Insight/judgment:impaired x 2. Memory/cog: alert, impaired s/s to psychiatric symptoms. Diagnostics Vital Signs (24Hr): Vital Signs - 24 hr 11/22/21 21:12 11/23/21 09:24 Temperature 98.1 F 98.3 F Pulse Rate 85 73 Respiratory Rate 17 Blood Pressure 109/60 90/51 L Pulse Oximetry 96 97 BMI result Body Mass Index 16.0 Labs Results: 11/14/21 14:52 11/16/21 08:34 Imaging Radiology Impressions: ITS Impressions Head CT 11/15/21 16:29 IMPRESSION: No acute intracranial hemorrhage or territorial infarction. 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 Query for any history of prior traumatic brain injury to account for these imaging findings. Medications Medications Current Medications Acetaminophen (Acetaminophen 325 Mg Tablet) 650 mg PO Q6H PRN PRN Reason: Headache/Pain Mild Scale (1-3) Last Admin: 11/18/21 07:41 Dose: 650 mg Documented by: Al Hydroxide/Mg Hydroxide (Magnesium Hydrox/Alum Hydrox 30 Ml Oral.Susp) 30 ml PO Q6H PRN PRN Reason: Heartburn/Nausea Magnesium Hydroxide (Milk Of Magnesia 30 Ml Oral.Susp) 30 ml PO DAILY PRN PRN Reason: Constipation Nicotine (Nicotine 14 Mg Patch.Td24) 14 mg TRANSDERMA DAILY [facility] Last Admin: 04/07/22 09:20 Dose: Not Given Documented by: Nicotine Polacrilex (Nicotine Polacrilex Lozenge 2 Mg Lozenge) 2 mg BUCCAL Q1H PRN PRN Reason: Nicotine Cravings Paliperidone (Paliperidone Er 6 Mg Tab.Er.24) 6 mg PO DAILY [facility] Trazodone HCl (Trazodone Hcl 50 Mg Tablet) 50 mg PO BEDTIME PRN PRN Reason: Insomnia Allergies Allergies Allergy/AdvReac Type Severity Reaction Status Date / Time divalproex sodium Allergy Mild CAUSES Unverified 05/05/20 17:02 [From DEPAKOTE] HAIR TO FALL OUT morphine [Morphine] Allergy Unknown UNKNOWN Unverified 05/05/20 17:02 clozapine [Clozapine] AdvReac Intermediate SEIZURE Unverified 05/05/20 17:02 Assessment & Plan Assessment & Plan (1) Schizoaffective disorder with good prognostic features and with catatonia: Status: Acute Code(s): F25.9 - Schizoaffective disorder, unspecified; 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 Kapoor is a 41 year-old woman with extensive hx of inpatient psych hospitalizations including in group home state psych facilities. MS. Kapoor was brought to [facility] [place] due to increase ability to care for herself, progressively becomi ng non verbal, mostly in her bed. This financial writer order head ct- which did not show acute finding. Pt started on ativan for catatonia. Will monitor labs (due to poor intake), intake, mobility (monitor DVT prevention as not moving much). PLAN 1. admit to M3, section 12b, 15 minutes checks 2. increase ativan to 2mg po TID- 3. used to be on paliperidone with good effect per OP psych provider- Fernando cerrato 4. Coordination of care with outpatient providers, family and resources. 4/1- s/s of catatonia resolving with ativan, appears internally preoccupied. She does have Baldwin that include Invega Sustenna, Haldol, clozaril, Loxapine, Olanzapine. Per OP provider Paliperidone seemed to be effective. Will start low dose of paliperidone 3mg po daily and monitor s/s worsening symptoms of catatonia. 4/2 - similar presentation to yesterday, no changes in mgmt. 4/3 - more spontaneous, better socially related. 4/4 - no change from yesterday, continue current mgmt. / - no change. 6- continue current med regimen, thought blocking, slowed 11/23 increase paliperidone to 6mg po daily, add ativan 1mg po TID. I spent minutes with the patient and/or on the patient floor today, greater than?50% of which was spent counseling/coordinating care. Reason for contiued inpatient stay Substantial Risk for: inability to function
[2021-11-23] MEDS: LORazepam 1 MG TABLET PO ×2 (14:52→20:43)
[2021-11-23 19:13] VITALS: BMI 17.2
[2021-11-23 19:14] VITALS: BP 102/64; PULSE 82; RESP 17; TEMP 36.7; O2SAT 98
[2021-11-24 08:56] VITALS: BP 96/58; PULSE 85; RESP 15; TEMP 36.8; O2SAT 96
[2021-11-24] MEDS: LORazepam 1 MG TABLET PO ×3 (09:07→20:14)
[2021-11-24] MEDS: Paliperidone ER 6 MG TAB.ER.24 PO (09:07)
--- NOTE | 2021-11-24 11:40 | P.PNPSI_ITS ---
Subjective Subjective Date of Service: 11/24/21 Reason For Visit: Disorganized speech/behavior Subjective Notes: Section 7 Interim History: Patient seen and discussed with team. Patient mostly in her room, but more talkative today. She reports she mostly wants to go home to smoke. When asked if at home she was using depends (as pt incontinent of both feces and urine), pt reports at home she was going to bathroom but given that she is being given depends here she was wondering if she can take some home and use them instead. Pt advised to go to bathroom instead of relying on depends. Pt appeared in agreement but unclear if she will cooperate with nursing to be on scheduled to go to the bathroom instead. She denies SI/HI. Brighter, non labile. Medication Compliance: Yes Side effects from medications: No Review of Systems Review of Systems Unwilling to talk Yes Unobtainable due to mental status and Other Mental Status Exam Mental Status Exam Narrative: Appearance: malnourish, thin, poor hygiene, more alert Behavior:cooperative psychomotor:less retardation noted Speech:mostly clear, soft tone, continues to have delayed response Thought process: less thought blocking Thought content: wanting to go home Affect: constricted Delusions:no overt reports Insight/judgment:impaired x 2. Memory/cog: alert, impaired s/s to psychiatric symptoms. Diagnostics Vital Signs (24Hr): Vital Signs - 24 hr 11/23/21 19:14 11/24/21 08:56 Temperature 98.1 F 98.3 F Pulse Rate 82 85 Respiratory Rate 17 15 Blood Pressure 102/64 96/58 L Pulse Oximetry 98 96 BMI result Body Mass Index 17.2 Labs Results: 11/14/21 14:52 11/16/21 08:34 Imaging Radiology Impressions: ITS Impressions Head CT 11/15/21 16:29 IMPRESSION: No acute intracranial hemorrhage or territorial infarction. 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 Query for any history of prior traumatic brain injury to account for these imaging findings. Medications Medications Current Medications Acetaminophen (Acetaminophen 325 Mg Tablet) 650 mg PO Q6H PRN PRN Reason: Headache/Pain Mild Scale (1-3) Last Admin: 11/18/21 07:41 Dose: 650 mg Documented by: Al Hydroxide/Mg Hydroxide (Magnesium Hydrox/Alum Hydrox 30 Ml Oral.Susp) 30 ml PO Q6H PRN PRN Reason: Heartburn/Nausea Lorazepam (Lorazepam 1 Mg Tablet) 1 mg PO TID [facility] Last Admin: 11/24/21 09:07 Dose: 1 mg Documented by: Magnesium Hydroxide (Milk Of Magnesia 30 Ml Oral.Susp) 30 ml PO DAILY PRN PRN Reason: Constipation Nicotine (Nicotine 14 Mg Patch.Td24) 14 mg TRANSDERMA DAILY [facility] Last Admin: 11/24/21 09:07 Dose: Not Given Documented by: Nicotine Polacrilex (Nicotine Polacrilex Lozenge 2 Mg Lozenge) 2 mg BUCCAL Q1H PRN PRN Reason: Nicotine Cravings Paliperidone (Paliperidone Er 6 Mg Tab.Er.24) 6 mg PO DAILY [facility] Last Admin: 11/24/21 09:07 Dose: 6 mg Documented by: Trazodone HCl (Trazodone Hcl 50 Mg Tablet) 50 mg PO BEDTIME PRN PRN Reason: Insomnia Allergies Allergies Allergy/AdvReac Type Severity Reaction Status Date / Time divalproex sodium Allergy Mild CAUSES Unverified 05/05/20 17:02 [From DEPAKOTE] HAIR TO FALL OUT morphine [Morphine] Allergy Unknown UNKNOWN Unverified 05/05/20 17:02 clozapine [Clozapine] AdvReac Intermediate SEIZURE Unverified 05/05/20 17:02 Assessment & Plan Assessment & Plan (1) Schizoaffective disorder with good prognostic features and with catatonia: Status: Acute Code(s): F25.9 - Schizoaffective disorder, unspecified; 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 Kapoor is a 41 year-old woman with extensive hx of inpatient psych hospitalizations including in custodial state psych facilities. MS. Kapoor was brought [place] [facility] [place] due to increase ability to care for herself, progressively becoming non verbal, mostly in her bed. This technical report writer order head ct- which did not show acute finding. Pt started on ativan for catatonia. Will monitor labs (due to poor intake), intake, mobility (monitor DVT prevention as not moving much). PLAN 1. admit to M3, section 12b, 15 minutes checks 2. increase ativan to 2mg po TID- 3. used to be on paliperidone with good effect per OP psych provider- Fernando Snowden 4. Coordination of care with outpatient providers, family and resources. 11/17- s/s of catatonia resolving with ativan, appears internally preoccupied. She does have Gibson that include Invega Sustenna, Haldol, clozaril, Loxapine, Olanzapine. Per OP provider Paliperidone seemed to be effective. Will start low dose of paliperidone 3mg po daily and monitor s/s worsening symptoms of catatonia. 4/ - similar presentation to yesterday, no changes in mgmt. 11/19 - more spontaneous, better socially related. 11/20 - no change from yesterday, continue current mgmt. 11/21 - no change. 11/22- continue current med regimen, thought blocking, slowed 11/23 increase paliperidone to 6mg po daily, add ativan 1mg po TID. 11/24 more talkative with ativan and increase on paliperidone to 6mg po daily- will give NORRIS per gibson of invega sustenna. continue current medications. I spent __25____ minutes with the patient and/or on the patient floor today, greater than?50% of which was spent counseling/coordinating care. Patient educated on: diagnosis Reason for contiued inpatient stay Substantial Risk for: inability to function
[2021-11-24 14:16] VITALS: BMI 17.2
--- NOTE | 2021-11-24 14:28 | MHC.CLN ---
F/U NUTRITION DX MODERATE MALNUTRITION IN THE CONTEXT OF CHRONIC ILLNESS. SIGNIFICANT WEIGHT LOSS SINCE ADMISSION, -18.8%. SIGNIFICANT WEIGHT LOSS X 6 MONTHS=-35%. VISITED AT LUNCH IN THE COMMON AREA. ATE 100% OF LUNCH. ENGAGED IN CONVERSATION. LIKES ENSURE SUPPLEMENT. CONTINUE REGULAR DIET WITH ENSURE TID (1050 KCALS, 60 G PROTEIN).
[2021-11-24 20:15] VITALS: BP 95/55; PULSE 78; TEMP 36.4; O2SAT 97
[2021-11-25 08:30] VITALS: BP 92/50; PULSE 80; RESP 16; TEMP 36.8; O2SAT 96
[2021-11-25] MEDS: LORazepam 1 MG TABLET PO ×3 (08:34→20:37)
[2021-11-25] MEDS: Paliperidone ER 6 MG TAB.ER.24 PO (08:34)
--- NOTE | 2021-11-25 11:47 | P.PNPSI_ITS ---
Subjective Subjective Date of Service: 11/25/21 Reason For Visit: Disorganized speech/behavior Subjective Notes: Section 7 Interim History: Patient seen and discussed with staff. Patient in her room. states she wants to go home. continues to be disorganized in thoughts. Pt still relying on depends instead of using bathroom regularly. She denies SI/HI. Bright affect.med compliant. No lability Medication Compliance: Yes Side effects from medications: No Attending Groups: Yes Review of Systems On antibiotics for UTI, incontinence Medical Review of Systems: unchanged Review of Systems Review of Systems unchanged Yes Unobtainable due to mental status and Other Mental Status Exam Mental Status Exam Narrative: Appearance: malnourished, thin, poor hygiene, more alert Behavior:cooperative psychomotor:less retardation noted Speech:mostly clear, soft tone, continues to have delayed response Thought process: less thought blocking Thought content: wanting to go home Affect: bright Delusions:no overt reports Insight/judgment:impaired x 2. fair-poor Memory/cog: alert, impaired s/s to psychiatric symptoms. Diagnostics Vital Signs (24Hr): Vital Signs - 24 hr 11/24/21 20:15 11/25/21 08:30 Temperature 97.6 F 98.3 F Pulse Rate 78 80 Respiratory Rate 16 Blood Pressure 95/55 L 92/50 L Pulse Oximetry 97 96 BMI result Body Mass Index 17.2 Labs Results: 11/14/21 14:52 11/16/21 08:34 Imaging Radiology Impressions: ITS Impressions Head CT 11/15/21 16:29 IMPRESSION: No acute intracranial hemorrhage or territorial infarction. 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 Query for any history of prior traumatic brain injury to account for these imaging findings. Medications Medications Current Medications Acetaminophen (Acetaminophen 325 Mg Tablet) 650 mg PO Q6H PRN PRN Reason: Headache/Pain Mild Scale (1-3) Last Admin: 11/18/21 07:41 Dose: 650 mg Documented by: Al Hydroxide/Mg Hydroxide (Magnesium Hydrox/Alum Hydrox 30 Ml Oral.Susp) 30 ml PO Q6H PRN PRN Reason: Heartburn/Nausea Lorazepam (Lorazepam 1 Mg Tablet) 1 mg PO TID [facility] Last Admin: 11/25/21 08:34 Dose: 1 mg Documented by: Magnesium Hydroxide (Milk Of Magnesia 30 Ml Oral.Susp) 30 ml PO DAILY PRN PRN Reason: Constipation Nicotine (Nicotine 14 Mg Patch.Td24) 14 mg TRANSDERMA DAILY [facility] Last Admin: 11/25/21 08:35 Dose: Not Given Documented by: Nicotine Polacrilex (Nicotine Polacrilex Lozenge 2 Mg Lozenge) 2 mg BUCCAL Q1H PRN PRN Reason: Nicotine Cravings Paliperidone (Paliperidone Er 6 Mg Tab.Er.24) 6 mg PO DAILY [facility] Last Admin: 11/25/21 08:34 Dose: 6 mg Documented by: Trazodone HCl (Trazodone Hcl 50 Mg Tablet) 50 mg PO BEDTIME PRN PRN Reason: Insomnia Allergies Allergies Allergy/AdvReac Type Severity Reaction Status Date / Time divalproex sodium Allergy Mild CAUSES Unverified 05/05/20 17:02 [From DEPAKOTE] HAIR TO FALL OUT morphine [Morphine] Allergy Unknown UNKNOWN Unverified 05/05/20 17:02 clozapine [Clozapine] AdvReac Intermediate SEIZURE Unverified 05/05/20 17:02 Assessment & Plan Assessment & Plan (1) Schizoaffective disorder with good prognostic features and with catatonia: Status: Acute Code(s): F25.9 - Schizoaffective disorder, unspecified; 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 Kapoor is a 41 year-old woman with extensive hx of inpatient psych hospitalizations including in alf state psych facilities. MS. Kap[place] [facility] [place] increase ability to care for herself, progressively becoming non verbal, mostly in her bed. This magazine writer order head ct- which did not show acute finding. Pt started on ativan for catatonia. Will monitor labs (due to poor intake), intake, mobility (monitor DVT prevention as not moving much). PLAN 1. admit to M3, section 12b, 15 minutes checks 2. increase ativan to 2mg po TID- 3. used to be on paliperidone with good effect per OP psych provider- Fernando Snowden 4. Coordination of care with outpatient providers, family and resources. 11/17- s/s of catatonia resolving with ativan, appears internally preoccupied. She does have Baldwin that include Invega Sustenna, Haldol, clozaril, Loxapine, Olanzapine. Per OP provider Paliperidone seemed to be effective. Will start low dose of paliperidone 3mg po daily and monitor s/s worsening symptoms of catatonia. 11/18 - similar presentation to yesterday, no changes in mgmt. 11/19 - more spontaneous, better socially related. 11/20 - no change from yesterday, continue current mgmt. 11/21 - no change. 11/22- continue current med regimen, thought blocking, slowed 11/23 increase paliperidone to 6mg po daily, add ativan 1mg po TID. 11/24 more talkative with ativan and increase on paliperidone to 6mg po daily- will give NORRIS per santiago melgar. continue current medications. 11/25 Brighter, appears to be tolerating paliperidone, Continue current treatment plan I spent __15____ minutes with the patient and/or on the patient floor today, greater than?50% of which was spent counseling/coordinating care. Patient educated on: medication risk/benefits and therapeutic strategies Informed Consent: further education needed Reason for contiued inpatient stay Substantial Risk for: harm to self, inability to function and rapid decompens ation
[2021-11-25 19:55] VITALS: BP 113/57; PULSE 99; TEMP 36.6; O2SAT 95
[2021-11-26 08:09] VITALS: BP 107/71; PULSE 78; RESP 16; TEMP 36.7; O2SAT 97
[2021-11-26] MEDS: LORazepam 1 MG TABLET PO ×3 (08:10→20:05)
[2021-11-26] MEDS: Paliperidone ER 6 MG TAB.ER.24 PO (08:10)
--- NOTE | 2021-11-26 15:33 | HO.PSYCHPN ---
Subjective Subjective Date of Service: 11/26/21 Reason For Visit: Disorganized speech/behavior Subjective Notes: Section 7 Interim History: Patient seen and discussed with staff. Patient still focused on wanting to go home. she continues to be disorganized in thoughts. Pt still relying on depends instead of using bathroom regularly. Incontinent. She denies SI/HI. Bright affect.med compliant. No lability Medication Compliance: Yes Side effects from medications: No Attending Groups: Intermittent Review of Systems incontinent Medical Review of Systems: unchanged Review of Systems Review of Systems unchanged Yes Unobtainable due to mental status and Other Mental Status Exam Mental Status Exam Narrative: Appearance: malnourished, thin, poor hygiene, more alert Behavior:cooperative psychomotor:less retardation noted Speech:mostly clear, soft tone, continues to have delayed response Thought process: less thought blocking Thought content: wanting to go home Affect: bright Delusions:no overt reports Insight/judgment:impaired x 2. fair-poor Memory/cog: alert, impaired s/s to psychiatric symptoms. Diagnostics Vital Signs (24Hr): Vital Signs - 24 hr 11/25/21 19:55 11/26/21 08:09 Temperature 97.8 F 98.0 F Pulse Rate 99 78 Respiratory Rate 16 Blood Pressure 113/57 L 107/71 Pulse Oximetry 95 97 BMI result Body Mass Index 17.2 Labs Results: 11/14/21 14:52 11/16/21 08:34 Imaging Radiology Impressions: ITS Impressions Head CT 11/15/21 16:29 IMPRESSION: No acute intracranial hemorrhage or territorial infarction. 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 Query for any history of prior traumatic brain injury to account for these imaging findings. Medications Medications Current Medications Acetaminophen (Acetaminophen 325 Mg Tablet) 650 mg PO Q6H PRN PRN Reason: Headache/Pain Mild Scale (1-3) Last Admin: 11/18/21 07:41 Dose: 650 mg Documented by: Al Hydroxide/Mg Hydroxide (Magnesium Hydrox/Alum Hydrox 30 Ml Oral.Susp) 30 ml PO Q6H PRN PRN Reason: Heartburn/Nausea Lorazepam (Lorazepam 1 Mg Tablet) 1 mg PO TID [facility] Last Admin: 11/26/21 08:10 Dose: 1 mg Documented by: Magnesium Hydroxide (Milk Of Magnesia 30 Ml Oral.Susp) 30 ml PO DAILY PRN PRN Reason: Constipation Nicotine (Nicotine 14 Mg Patch.Td24) 14 mg TRANSDERMA DAILY [facility] Last Admin: 11/26/21 08:11 Dose: Not Given Documented by: Nicotine Polacrilex (Nicotine Polacrilex Lozenge 2 Mg Lozenge) 2 mg BUCCAL Q1H PRN PRN Reason: Nicotine Cravings Paliperidone (Paliperidone Er 6 Mg Tab.Er.24) 6 mg PO DAILY [facility] Last Admin: 11/26/21 08:10 Dose: 6 mg Documented by: Trazodone HCl (Trazodone Hcl 50 Mg Tablet) 50 mg PO BEDTIME PRN PRN Reason: Insomnia Allergies Allergies Allergy/AdvReac Type Severity Reaction Status Date / Time divalproex sodium Allergy Mild CAUSES Unverified 05/05/20 17:02 [From DEPAKOTE] HAIR TO FALL OUT morphine [Morphine] Allergy Unknown UNKNOWN Unverified 05/05/20 17:02 clozapine [Clozapine] AdvReac Intermediate SEIZURE Unverified 05/05/20 17:02 Assessment & Plan Assessment & Plan (1) Schizoaffective disorder with good prognostic features and with catatonia: Status: Acute Code(s): F25.9 - Schizoaffective disorder, unspecified; 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 Kapoor is a 41 year-old woman with extensive hx of inpatient psych hospitalizations including in term[facility] treat[facility] helper state psych facilities. MS. [place] [facility] [place] to increase ability to care for herself, progressively becoming non verbal, mostly in her bed. This junior copywriter order head ct- which did not show acute finding. Pt started on ativan for catatonia. Will monitor labs (due to poor intake), intake, mobility (monitor DVT prevention as not moving much). PLAN 1. admit to M3, section 12b, 15 minutes checks 2. increase ativan to 2mg po TID- 3. used to be on paliperidone with good effect per OP psych provider- Fernando Snowden 4. Coordination of care with outpatient providers, family and resources. /- s/s of catatonia resolving with ativan, appears internally preoccupied. She does have Baldwin that include Invega Sustenna, Haldol, clozaril, Loxapine, Olanzapine. Per OP provider Paliperidone seemed to be effective. Will start low dose of paliperidone 3mg po daily and monitor s/s worsening symptoms of catatonia. 11/18 - similar presentation to yesterday, no changes in mgmt. 11/19 - more spontaneous, better socially related. 11/20 - no change from yesterday, continue current mgmt. 11/21 - no change. 11/22- continue current med regimen, thought blocking, slowed 11/23 increase paliperidone to 6mg po daily, add ativan 1mg po TID. 11/24 more talkative with ativan and increase on paliperidone to 6mg po daily- will give NORRIS per santiago melgar. continue current medications. 11/25 Brighter, appears to be tolerating paliperidone, Continue current treatment plan 11/26 continue current treatment plan I spent _15 minutes with the patient and/or on the patient floor today, greater than?50% of which was spent counseling/coordinating care. Reason for contiued inpatient stay Substantial Risk for: harm to self, inability to function and rapid decompensation
[2021-11-26 20:01] VITALS: BP 111/70; PULSE 82; RESP 16; TEMP 36.3; O2SAT 97
[2021-11-27 07:53] VITALS: BP 94/62; PULSE 79; RESP 16; TEMP 36.6; O2SAT 97
[2021-11-27] MEDS: LORazepam 1 MG TABLET PO ×3 (08:04→21:58)
[2021-11-27] MEDS: Paliperidone ER 6 MG TAB.ER.24 PO (08:04)
--- NOTE | 2021-11-27 11:31 | P.PNPSI_ITS ---
Subjective Subjective Date of Service: 11/27/21 Reason For Visit: Disorganized speech/behavior Subjective Notes: Section 7 Interim History: Patient seen and discussed with staff. Pt reports hearing voices telling her that someone on unit or in the hospital is hurting children. She reports not feeling safe here in hospital and wanting to go home. She reports sometimes I just feel like taking a plan and leaving referring to hoping voices and paranoia will resolve. She denies SI/HI. Per nursing, pt sleeping through the night, still incontinent, which is not her usual and may be more related to psychosis than physiological issues. we discussed increasing paliperidone to 12mg po daily. continue ativan Medication Compliance: Yes Review of Systems Review of Systems unchanged Yes Unobtainable due to mental status and Other Mental Status Exam Mental Status Exam Narrative: Appearance: malnourished, thin, poor hygiene, more alert Behavior:cooperative psychomotor:less retardation noted Speech:mostly clear, soft tone, continues to have delayed response, spontaneous Thought process: reports thinking staff hurting children, persecutory delusions Thought content: wanting to go home, Affect: constricted Delusions:persecutory delusions AH/VH: of people telling her that children are being hurt in hospital, someone after her. Insight/judgment:impaired x 2. fair-poor Memory/cog: alert, impaired s/s to psychiatric symptoms. Diagnostics Vital Signs (24Hr): Vital Signs - 24 hr 11/26/21 20:01 11/27/21 07:53 Temperature 97.4 F 97.8 F Pulse Rate 82 79 Respiratory Rate 16 16 Blood Pressure 111/70 94/62 Pulse Oximetry 97 97 BMI result Body Mass Index 17.2 Labs Results: 11/14/21 14:52 11/16/21 08:34 Imaging Radiology Impressions: ITS Impressions Head CT 11/15/21 16:29 IMPRESSION: No acute intracranial hemorrhage or territorial infarction. 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 Query for any history of prior traumatic brain injury to account for these imaging findings. Medications Medications Current Medications Acetaminophen (Acetaminophen 325 Mg Tablet) 650 mg PO Q6H PRN PRN Reason: Headache/Pain Mild Scale (1-3) Last Admin: 11/18/21 07:41 Dose: 650 mg Documented by: Al Hydroxide/Mg Hydroxide (Magnesium Hydrox/Alum Hydrox 30 Ml Oral.Susp) 30 ml PO Q6H PRN PRN Reason: Heartburn/Nausea Lorazepam (Lorazepam 1 Mg Tablet) 1 mg PO TID [facility] Last Admin: 11/27/21 08:04 Dose: 1 mg Documented by: Magnesium Hydroxide (Milk Of Magnesia 30 Ml Oral.Susp) 30 ml PO DAILY PRN PRN Reason: Constipation Nicotine (Nicotine 14 Mg Patch.Td24) 14 mg TRANSDERMA DAILY [facility] Last Admin: 11/27/21 08:05 Dose: Not Given Documented by: Nicotine Polacrilex (Nicotine Polacrilex Lozenge 2 Mg Lozenge) 2 mg BUCCAL Q1H PRN PRN Reason: Nicotine Cravings Paliperidone (Paliperidone Er 6 Mg Tab.Er.24) 12 mg PO DAILY [facility] Trazodone HCl (Trazodone Hcl 50 Mg Tablet) 50 mg PO BEDTIME PRN PRN Reason: Insomnia Allergies Allergies Allergy/AdvReac Type Severity Reaction Status Date / Time divalproex sodium Allergy Mild CAUSES Unverified 05/05/20 17:02 [From DEPAKOTE] HAIR TO FALL OUT morphine [Morphine] Allergy Unknown UNKNOWN Unverified 05/05/20 17:02 clozapine [Clozapine] AdvReac Intermediate SEIZURE Unverified 05/05/20 17:02 Assessment & Plan Assessment & Plan (1) Schizoaffective disorder with good prognostic features and with catatonia: Status: Acute Code(s): F25.9 - Schizoaffective disorder, unspecified; 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 Kapoor is a 41 year-old woman with extensive hx of inpatient psych hospitalizations including in [facility] state psych facilities. MS. Kapoor was brought to [facility] [place] due to increase ability to care for herself, progressively becoming non verbal, mostly in her bed. This content writer order head ct- which did not show acute finding. Pt started on ativan for catatonia. Will monitor labs (due to poor intake), intake, mobility (monitor DVT prevention as not moving much). PLAN 1. admit to M3, section 12b, 15 minutes checks 2. increase ativan to 2mg po TID- 3. used to be on paliperidone with good effect per OP psych provider- Fernando Snowden 4. Coordination of care with outpatient providers, family and resources. 11/17- s/s of catatonia resolving with ativan, appears internally preoccupied. She does have Gibson that include Invega Sustenna, Haldol, clozaril, Loxapine, Olanzapine. Per OP provider Paliperidone seemed to be effective. Will start low dose of paliperidone 3mg po daily and monitor s/s worsening symptoms of catatonia. 11/18 - similar presentation to yesterday, no changes in mgmt. 11/19 - more spontaneous, better socially related. 11/20 - no change from yesterday, continue current mgmt. 11/21 - no change. 11/22- continue current med regimen, thought blocking, slowed 11/23 increase paliperidone to 6mg po daily, add ativan 1mg po TID. 11/24 more talkative with ativan and increase on paliperidone to 6mg po daily- will give NORRIS per gibson of invega sustenna. continue current medications. 11/25 Brighter, appears to be tolerating paliperidone, Continue current treatment plan 11/26 continue current treatment plan 11/27- increase paliperidone to 12mg po daily due to paranoia and AH. I spent minutes with the patient and/or on the patient floor today, greater than?50% of which was spent counseling/coordinating care. Reason for contiued inpatient stay Substantial Risk for: inability to function
--- NOTE | 2021-11-27 15:41 | MHC.CLN ---
F/U DIET=REGULAR. ENSURE TID PROVIDES 1050 KCAL, 60 G PROTEIN. PATIENT REPORTS THAT EATING OK, BUT DID NOT ENGAGE IN FURTHER CONVERSATION. CONTINUE CURRENT DIET/SUPPLEMENT. RD TO FOLLOW WEEKLY.
[2021-11-27] MEDS: Acetaminophen 325 MG TABLET 650 MG PO (17:56)
[2021-11-27 21:55] VITALS: BP 105/65; PULSE 70; RESP 17; TEMP 36.3; O2SAT 97
[2021-11-28 08:00] VITALS: BP 108/57; PULSE 69; RESP 16; TEMP 36.6; O2SAT 96
[2021-11-28] MEDS: LORazepam 1 MG TABLET PO ×3 (09:25→20:45)
[2021-11-28] MEDS: Paliperidone ER 6 MG TAB.ER.24 12 MG PO (09:26)
--- NOTE | 2021-11-28 11:45 | P.PNPSI_ITS ---
Subjective Subjective Date of Service: 11/28/21 Reason For Visit: Disorganized speech/behavior Interim History: Patient seen and discussed with staff. Pt reports she does not want to return to for unclear reasons. Pt states I just need to ask this man to bring me to my mother's house. when asked who she was referring, pt states no one. Pt reports hearing voices, when asked what the voices are saying, pt states I just want to go home. She later stated she enjoyed fresh air. She reports sleeping and eating well. She denies SI/HI. Seen by coach driver last week- malnourished. Medication Compliance: Yes Side effects from medications: No Attending Groups: Intermittent Review of Systems Acute medical concerns: No Review of Systems Review of Systems unchanged Yes Unobtainable due to mental status and Other Mental Status Exam Mental Status Exam Narrative: Appearance: malnourished, thin, poor hygiene, more alert Behavior:cooperative psychomotor:less retardation noted Speech:mostly clear, soft tone, continues to have delayed response, spontaneous Thought process: reports thinking staff hurting children, persecutory delusions Thought content: wanting to go home, Affect: constricted Delusions:persecutory delusions AH/VH: of people telling her that children are being hurt in hospital, someone after her. Insight/judgment:impaired x 2. fair-poor Memory/cog: alert, impaired s/s to psychiatric symptoms. Diagnostics Vital Signs (24Hr): Vital Signs - 24 hr 11/27/21 21:55 11/28/21 08:00 Temperature 97.3 F 97.9 F Pulse Rate 70 69 Respiratory Rate 17 16 Blood Pressure 105/65 108/57 L Pulse Oximetry 97 96 BMI result Body Mass Index 17.2 Labs Results: 11/14/21 14:52 11/16/21 08:34 Imaging Radiology Impressions: ITS Impressions Head CT 11/15/21 16:29 IMPRESSION: No acute intracranial hemorrhage or territorial infarction. 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 Query for any history of prior traumatic brain injury to account for these imaging findings. Medications Medications Current Medications Acetaminophen (Acetaminophen 325 Mg Tablet) 650 mg PO Q6H PRN PRN Reason: Headache/Pain Mild Scale (1-3) Last Admin: 11/27/21 17:56 Dose: 650 mg Documented by: Al Hydroxide/Mg Hydroxide (Magnesium Hydrox/Alum Hydrox 30 Ml Oral.Susp) 30 ml PO Q6H PRN PRN Reason: Heartburn/Nausea Lorazepam (Lorazepam 1 Mg Tablet) 1 mg PO TID [facility] Last Admin: 11/28/21 09:25 Dose: 1 mg Documented by: Magnesium Hydroxide (Milk Of Magnesia 30 Ml Oral.Susp) 30 ml PO DAILY PRN PRN Reason: Constipation Nicotine (Nicotine 14 Mg Patch.Td24) 14 mg TRANSDERMA DAILY [facility] Last Admin: 11/28/21 09:27 Dose: Not Given Documented by: Nicotine Polacrilex (Nicotine Polacrilex Lozenge 2 Mg Lozenge) 2 mg BUCCAL Q1H PRN PRN Reason: Nicotine Cravings Paliperidone (Paliperidone Er 6 Mg Tab.Er.24) 12 mg PO DAILY [facility] Last Admin: 11/28/21 09:26 Dose: 12 mg Documented by: Trazodone HCl (Trazodone Hcl 50 Mg Tablet) 50 mg PO BEDTIME PRN PRN Reason: Insomnia Allergies Allergies Allergy/AdvReac Type Severity Reaction Status Date / Time divalproex sodium Allergy Mild CAUSES Unverified 05/05/20 17:02 [From DEPAKOTE] HAIR TO FALL OUT morphine [Morphine] Allergy Unknown UNKNOWN Unverified 05/05/20 17:02 clozapine [Clozapine] AdvReac Intermediate SEIZURE Unverified 05/05/20 17:02 Assessment & Plan Assessment & Plan (1) Schizoaffective disorder with good prognostic features and with catatonia: Status: Acute Code(s): F25.9 - Schizoaffective disorder, unspecified; 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 Kapoor is a 41 year-old woman with extensive hx of inpatient psych hospitalizations including in medical terminologist state psych facilities. MS. Kapoor was brought to [facility] [place] due to increase ability to care for herself, progressively becoming non verbal, mostly in her bed. This singer songwriter order head ct- which did not show acute finding. Pt started on ativan for catatonia. Will monitor labs (due to poor intake), intake, mobility (monitor DVT prevention as not moving much). PLAN 1. admit to M3, section 12b, 15 minutes checks 2. increase ativan to 2mg po TID- 3. used to be on paliperidone with good effect per OP psych provider- Fernando Snowden 4. Coordination of care with outpatient providers, family and resources. 11/17- s/s of catatonia resolving with ativan, appears internally preoccupied. She does have Gibson that include Invega Sustenna, Haldol, clozaril, Loxapine, Olanzapine. Per OP provider Paliperidone seemed to be effective. Will start low dose of paliperidone 3mg po daily and monitor s/s worsening symptoms of catatonia. 11/18 - similar presentation to yesterday, no changes in mgmt. 11/19 - more spontaneous, better socially related. 11/20 - no change from yesterday, continue current mgmt. 11/21 - no change. 11/22- continue current med regimen, thought blocking, slowed 11/23 increase paliperidone to 6mg po daily, add ativan 1mg po TID. 11/24 more talkative with ativan and increase on paliperidone to 6mg po daily- will give NORRIS per gibson of invega sustenna. continue current medications. 11/25 Brighter, appears to be tolerating paliperidone, Continue current treatment plan 11/26 continue current treatment plan 11/27- increase paliperidone to 12mg po daily due to paranoia and AH. 11/28 continue current medications. I spent minutes with the patient and/or on the patient floor today, greater than?50% of which was spent counseling/coordinating care. Reason for contiued inpatient stay Substantial Risk for: inability to function
[2021-11-28 18:00] VITALS: BP 116/74; PULSE 105; RESP 16; TEMP 36.8; O2SAT 96
[2021-11-29 06:00] VITALS: BP 94/59; PULSE 91; RESP 16; TEMP 36.6; O2SAT 96
[2021-11-29] MEDS: LORazepam 1 MG TABLET PO ×3 (08:38→20:30)
[2021-11-29] MEDS: Paliperidone ER 6 MG TAB.ER.24 12 MG PO (08:38)
--- NOTE | 2021-11-29 13:14 | HO.PSYCHPN ---
Subjective Subjective Date of Service: 11/29/21 Reason For Visit: Disorganized speech/behavior Subjective Notes: Section 7 Interim History: Patient seen and discussed with staff. Pt reports she wants to go back to the , she reports she needs fresh air. She reports less AH, but also inconsistent with reports of paranoia. She reports she wants to go out for fresh air. She denies SI/HI. Less incontinence that it is thought to be more behavioral/possibly related to psychosis than physiological causes. Pt has been more visible, most speech is with loose associations. Medication Compliance: Yes Side effects from medications: No Review of Systems Review of Systems unchanged Yes Unobtainable due to mental status and Other Mental Status Exam Mental Status Exam Narrative: Appearance: malnourished, thin, poor hygiene, more alert Behavior:cooperative psychomotor:less retardation noted Speech:mostly clear, soft tone, continues to have delayed response, spontaneous Thought process: reports thinking staff hurting children, persecutory delusions Thought content: wanting to go home, Affect: constricted Delusions:persecutory delusions AH/VH: of people telling her that children are being hurt in hospital, someone after her. Insight/judgment:impaired x 2. fair-poor Memory/cog: alert, impaired s/s to psychiatric symptoms. Diagnostics Vital Signs (24Hr): Vital Signs - 24 hr 11/28/21 18:00 Temperature 98.2 F Pulse Rate 105 H Respiratory Rate 16 Blood Pressure 116/74 Pulse Oximetry 96 BMI result Body Mass Index 17.2 Labs Results: 11/14/21 14:52 11/16/21 08:34 Imaging Radiology Impressions: ITS Impressions Head CT 11/15/21 16:29 IMPRESSION: No acute intracranial hemorrhage or territorial infarction. 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 Query for any history of prior traumatic brain injury to account for these imaging findings. Medications Medications Current Medications Acetaminophen (Acetaminophen 325 Mg Tablet) 650 mg PO Q6H PRN PRN Reason: Headache/Pain Mild Scale (1-3) Last Admin: 11/27/21 17:56 Dose: 650 mg Documented by: Al Hydroxide/Mg Hydroxide (Magnesium Hydrox/Alum Hydrox 30 Ml Oral.Susp) 30 ml PO Q6H PRN PRN Reason: Heartburn/Nausea Lorazepam (Lorazepam 1 Mg Tablet) 1 mg PO TID [facility] Last Admin: 11/29/21 08:38 Dose: 1 mg Documented by: Magnesium Hydroxide (Milk Of Magnesia 30 Ml Oral.Susp) 30 ml PO DAILY PRN PRN Reason: Constipation Nicotine (Nicotine 14 Mg Patch.Td24) 14 mg TRANSDERMA DAILY [facility] Last Admin: 11/29/21 08:40 Dose: Not Given Documented by: Nicotine Polacrilex (Nicotine Polacrilex Lozenge 2 Mg Lozenge) 2 mg BUCCAL Q1H PRN PRN Reason: Nicotine Cravings Paliperidone (Paliperidone Er 6 Mg Tab.Er.24) 12 mg PO DAILY [facility] Last Admin: 11/29/21 08:38 Dose: 12 mg Documented by: Trazodone HCl (Trazodone Hcl 50 Mg Tablet) 50 mg PO BEDTIME PRN PRN Reason: Insomnia Allergies Allergies Allergy/AdvReac Type Severity Reaction Status Date / Time divalproex sodium Allergy Mild CAUSES Unverified 05/05/20 17:02 [From DEPAKOTE] HAIR TO FALL OUT morphine [Morphine] Allergy Unknown UNKNOWN Unverified 05/05/20 17:02 clozapine [Clozapine] AdvReac Intermediate SEIZURE Unverified 05/05/20 17:02 Assessment & Plan Assessment & Plan (1) Schizoaffective disorder with good prognostic features and with catatonia: Status: Acute Code(s): F25.9 - Schizoaffective disorder, unspecified; 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 MS. Kapoor was brought to [facility] [place] due to increase ability to care for herself, progressively becoming non verbal, mostly in her bed. This engineering writer order head ct- which did not show acute finding. Pt started on ativan for catatonia. Will monitor labs (due to poor intake), intake, mobility (monitor DVT prevention as not moving much). PLAN 1. admit to M3, section 12b, 15 minutes checks 2. increase ativan to 2mg po TID- 3. used to be on paliperidone with good effect per OP psych provider- Fernando Snowden 4. Coordination of care with outpatient providers, family and resources. 4/1- s/s of catatonia resolving with ativan, appears internally preoccupied. She does have Gibson that include Invega Sustenna, Haldol, clozaril, Loxapine, Olanzapine. Per OP provider Paliperidone seemed to be effective. Will start low dose of paliperidone 3mg po daily and monitor s/s worsening symptoms of catatonia. 11/18 - similar presentation to yesterday, no changes in mgmt. 11/19 - more spontaneous, better socially related. 11/20 - no change from yesterday, continue current mgmt. 11/21 - no change. 11/22- continue current med regimen, thought blocking, slowed 11/23 increase paliperidone to 6mg po daily, add ativan 1mg po TID. 11/24 more talkative with ativan and increase on paliperidone to 6mg po daily- will give NORRIS per gibson of invega sustenna. continue current medications. 11/25 Brighter, appears to be tolerating paliperidone, Continue current treatment plan 11/26 continue current treatment plan 11/27- increase paliperidone to 12mg po daily due to paranoia and AH. 11/28 continue current medications. 11/29 continue current medications. I spent minutes with the patient and/or on the patient floor today, greater than?50% of which was spent counseling/coordinating care. Reason for contiued inpatient stay Substantial Risk for: inability to function
[2021-11-29 20:25] VITALS: BP 96/54; PULSE 99; TEMP 36.6; O2SAT 95
[2021-11-30 06:00] VITALS: BP 113/54; PULSE 88; RESP 16; TEMP 36.4; O2SAT 98
[2021-11-30 07:00] VITALS: BMI 18.1
[2021-11-30] MEDS: Paliperidone ER 6 MG TAB.ER.24 12 MG PO (08:33)
[2021-11-30] MEDS: LORazepam 1 MG TABLET PO ×3 (08:33→20:45)
[2021-11-30 20:46] VITALS: BP 102/58; PULSE 80; TEMP 36.5; O2SAT 96
[2021-12-01 08:36] VITALS: BP 118/55; PULSE 85; RESP 18; TEMP 36.8; O2SAT 98
[2021-12-01] MEDS: LORazepam 1 MG TABLET PO ×3 (08:37→21:03)
[2021-12-01] MEDS: Paliperidone ER 6 MG TAB.ER.24 12 MG PO (08:37)
--- NOTE | 2021-12-01 13:48 | HO.PSYCHPN ---
Subjective Subjective Date of Service: 12/01/21 Reason For Visit: Disorganized speech/behavior Subjective Notes: Section 7 Interim History: Patient seen and discussed with staff. Pt has been more visible in the unit. Speech with loose association at times. She reports she wants to go back to . She reports she only hears voices when cleaning the yard or my room at despite reporting few day she was hearing voices and wondering if she goes to if she would still hear them. She denies SI/HI. Less incidents of incontinence, which are thought to be more behavioral than physiological. Less disorganized, do suspect pt is not too far from baseline. Medication Compliance: Yes Side effects from medications: No Review of Systems Review of Systems unchanged Yes Unobtainable due to mental status and Other Mental Status Exam Mental Status Exam Narrative: Appearance: malnourished, thin, poor hygiene, more alert Behavior:cooperative psychomotor:less retardation noted Speech:mostly clear, soft tone, continues to have delayed response, spontaneous Thought process: reports thinking staff hurting children, persecutory delusions Thought content: wanting to go home, Affect: constricted Delusions:persecutory delusions AH/VH: of people telling her that children are being hurt in hospital, someone after her. Insight/judgment:impaired x 2. fair-poor Memory/cog: alert, impaired s/s to psychiatric symptoms. Diagnostics Vital Signs (24Hr): Vital Signs - 24 hr 11/30/21 20:46 12/01/21 08:36 Temperature 97.7 F 98.2 F Pulse Rate 80 85 Respiratory Rate 18 Blood Pressure 102/58 L 118/55 L Pulse Oximetry 96 98 BMI result Body Mass Index 18.1 Labs Results: 11/14/21 14:52 11/16/21 08:34 Imaging Radiology Impressions: ITS Impressions Head CT 11/15/21 16:29 IMPRESSION: No acute intracranial hemorrhage or territorial infarction. 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 Query for any history of prior traumatic brain injury to account for these imaging findings. Medications Medications Current Medications Acetaminophen (Acetaminophen 325 Mg Tablet) 650 mg PO Q6H PRN PRN Reason: Headache/Pain Mild Scale (1-3) Last Admin: 11/27/21 17:56 Dose: 650 mg Documented by: Al Hydroxide/Mg Hydroxide (Magnesium Hydrox/Alum Hydrox 30 Ml Oral.Susp) 30 ml PO Q6H PRN PRN Reason: Heartburn/Nausea Lorazepam (Lorazepam 1 Mg Tablet) 1 mg PO TID [facility] Last Admin: 12/01/21 08:37 Dose: 1 mg Documented by: Magnesium Hydroxide (Milk Of Magnesia 30 Ml Oral.Susp) 30 ml PO DAILY PRN PRN Reason: Constipation Nicotine (Nicotine 14 Mg Patch.Td24) 14 mg TRANSDERMA DAILY [facility] Last Admin: 12/01/21 08:38 Dose: Not Given Documented by: Nicotine Polacrilex (Nicotine Polacrilex Lozenge 2 Mg Lozenge) 2 mg BUCCAL Q1H PRN PRN Reason: Nicotine Cravings Paliperidone (Paliperidone Er 6 Mg Tab.Er.24) 12 mg PO DAILY [facility] Last Admin: 12/01/21 08:37 Dose: 12 mg Documented by: Paliperidone Palmitate (Paliperidone Palmitate 234 Mg/1.5 Ml Syringe) 234 mg IM ONCE ONE Stop: 12/01/21 13:45 Paliperidone Palmitate (Paliperidone Palmitate 156 Mg/Ml Syringe) 156 mg IM ONCE ONE Stop: 12/08/21 08:01 Trazodone HCl (Trazodone Hcl 50 Mg Tablet) 50 mg PO BEDTIME PRN PRN Reason: Insomnia Allergies Allergies Allergy/AdvReac Type Severity Reaction Status Date / Time divalproex sodium Allergy Mild CAUSES Unverified 05/05/20 17:02 [From DEPAKOTE] HAIR TO FALL OUT morphine [Morphine] Allergy Unknown UNKNOWN Unverified 05/05/20 17:02 clozapine [Clozapine] AdvReac Intermediate SEIZURE Unverified 05/05/20 17:02 Assessment & Plan Assessment & Plan (1) Schizoaffective disorder with good prognostic features and with catatonia: Status: Acute Code(s): F25.9 - Schizoaffective disorder, unspecified; 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 Kapoor is a 41 year-old woman with extensive hx of inpatient psych hospitalizations including in [facility] psych facilities. MS. Kap[place] [facility] [place] increase ability to care for herself, progressively becoming non verbal, mostly in her bed. This mortgage or loan underwriter order head ct- which did not show acute finding. Pt started on ativan for catatonia. Will monitor labs (due to poor intake), intake, mobility (monitor DVT prevention as not moving much). PLAN 1. admit to M3, section 12b, 15 minutes checks 2. increase ativan to 2mg po TID- 3. used to be on paliperidone with good effect per OP psych provider- Fernando Snowden 4. Coordination of care with outpatient providers, family and resources. 11/17- s/s of catatonia resolving with ativan, appears internally preoccupied. She does have Gibson that include Invega Sustenna, Haldol, clozaril, Loxapine, Olanzapine. Per OP provider Paliperidone seemed to be effective. Will start low dose of paliperidone 3mg po daily and monitor s/s worsening symptoms of catatonia. 11/18 - similar presentation to yesterday, no changes in mgmt. 11/19 - more spontaneous, better socially related. 11/20 - no change from yesterday, continue current mgmt. 11/21 - no change. 11/22- continue current med regimen, thought blocking, slowed 11/23 increase paliperidone to 6mg po daily, add ativan 1mg po TID. 11/24 more talkative with ativan and increase on paliperidone to 6mg po daily- will give NORRIS per gibson of invega sustenna. continue current medications. 11/25 Brighter, appears to be tolerating paliperidone, Continue current treatment plan 11/26 continue current treatment plan 11/27- increase paliperidone to 12mg po daily due to paranoia and AH. 11/28 continue current medications. 11/29 continue current medications. 12/01- receive first Invega Sustenna 234mg IM, next 12/08 Invega Sustenna 156mg IM, then 234mg IM q monthly starting on 01/05 I spent minutes with the patient and/or on the patient floor today, greater than?50% of which was spent counseling/coordinating care. Reason for contiued inpatient stay Substantial Risk for: inability to function
--- NOTE | 2021-12-01 14:02 | MHC.CLN ---
F/U DIET=REGULAR. ENSURE TID PROVIDES 1050 KCAL, 60 G PROTEIN. NO NOTED CONCERNS WITH CURRENT DIET OR INTAKE. SHOWS FAVORABLE, SIGNIFICANT WEIGHT GAIN SINCE 11/16, +13.5%. CONTINUE CURRENT DIET/SUPPLEMENT. RD TO FOLLOW WEEKLY.
[2021-12-01] MEDS: Paliperidone Palmitate 234 MG/1.5 ML SYRINGE IM (16:54)
[2021-12-01 20:00] VITALS: BP 112/69; PULSE 93; RESP 18; TEMP 36.3; O2SAT 99
[2021-12-01] MEDS: traZODone HCL 50 MG TABLET PO (21:03)
[2021-12-02 09:08] VITALS: BP 110/76; PULSE 115; RESP 18; TEMP 36.3; O2SAT 97
[2021-12-02] MEDS: LORazepam 1 MG TABLET PO ×2 (09:14→14:24)
[2021-12-02] MEDS: Paliperidone ER 6 MG TAB.ER.24 12 MG PO (09:14)
--- NOTE | 2021-12-02 09:31 | P.PNPSI_ITS ---
Subjective Subjective Date of Service: 12/02/21 Reason For Visit: Disorganized speech/behavior Subjective Notes: Section 7 Healthcare Proxy: No Guardianship: No Interim History: Patient was seen and discussed in rounds today. She continues to be isolative. She is compliant with medications. She denies any side effects from the Invega shot. Eating and sleeping adequately. She has had some episodes of incontine nce. Admits to some auditory hallucinations. No SI. No other complaints. No other changes were made today Attending Groups: No Review of Systems Review of Systems Yes all other systems are reviewed and are negative Diagnostics Vital Signs (24Hr): Vital Signs - 24 hr 12/01/21 20:00 12/02/21 09:08 Temperature 97.3 F 97.4 F Pulse Rate 93 115 H Respiratory Rate 18 18 Blood Pressure 112/69 110/76 Pulse Oximetry 99 97 BMI result Body Mass Index 18.1 Labs Results: 11/14/21 14:52 11/16/21 08:34 Imaging Radiology Impressions: ITS Impressions Head CT 11/15/21 16:29 IMPRESSION: No acute intracranial hemorrhage or territorial infarction. 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 Query for any history of prior traumatic brain injury to account for these imaging findings. Medications Medications Current Medications Acetaminophen (Acetaminophen 325 Mg Tablet) 650 mg PO Q6H PRN PRN Reason: Headache/Pain Mild Scale (1-3) Last Admin: 11/27/21 17:56 Dose: 650 mg Documented by: Al Hydroxide/Mg Hydroxide (Magnesium Hydrox/Alum Hydrox 30 Ml Oral.Susp) 30 ml PO Q6H PRN PRN Reason: Heartburn/Nausea Lorazepam (Lorazepam 1 Mg Tablet) 1 mg PO TID [facility] Last Admin: 12/02/21 09:14 Dose: 1 mg Documented by: Magnesium Hydroxide (Milk Of Magnesia 30 Ml Oral.Susp) 30 ml PO DAILY PRN PRN Reason: Constipation Nicotine (Nicotine 14 Mg Patch.Td24) 14 mg TRANSDERMA DAILY [facility] Last Admin: 12/02/21 09:16 Dose: Not Given Documented by: Nicotine Polacrilex (Nicotine Polacrilex Lozenge 2 Mg Lozenge) 2 mg BUCCAL Q1H PRN PRN Reason: Nicotine Cravings Paliperidone (Paliperidone Er 6 Mg Tab.Er.24) 12 mg PO DAILY [facility] Last Admin: 12/02/21 09:14 Dose: 12 mg Documented by: Paliperidone Palmitate (Paliperidone Palmitate 156 Mg/Ml Syringe) 156 mg IM ONCE ONE Stop: 12/08/21 08:01 Trazodone HCl (Trazodone Hcl 50 Mg Tablet) 50 mg PO BEDTIME PRN PRN Reason: Insomnia Last Admin: 12/01/21 21:03 Dose: 50 mg Documented by: Allergies Allergies Allergy/AdvReac Type Severity Reaction Status Date / Time divalproex sodium Allergy Mild CAUSES Unverified 05/05/20 17:02 [From DEPAKOTE] HAIR TO FALL OUT morphine [Morphine] Allergy Unknown UNKNOWN Unverified 05/05/20 17:02 clozapine [Clozapine] AdvReac Intermediate SEIZURE Unverified 05/05/20 17:02 Assessment & Plan Assessment & Plan (1) Schizoaffective disorder with good prognostic features and with catatonia: Status: Acute Code(s): F25.9 - Schizoaffective disorder, unspecified; 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 MS. Kapoor was brought to [facility] [place] due to increase ability to care for herself, progressively becoming non verbal, mostly in her bed. This typewriter repairer order head ct- which did not show acute finding. Pt started on ativan for catatonia. Will monitor labs (due to poor intake), intake, mobility (monitor DVT prevention as not moving much). PLAN 1. admit to M3, section 12b, 15 minutes checks 2. increase ativan to 2mg po TID- 3. used to be on paliperidone with good effect per OP psych provider- Fernando Snowden 4. Coordination of care with outpatient providers, family and resources. 4/1- s/s of catatonia resolving with ativan, appears internally preoccupied. She does have [place] that include Invega Sustenna, Haldol, clozaril, Loxapine, Olanzapine. Per OP provider Paliperidone seemed to be effective. Will start low dose of paliperidone 3mg po daily and monitor s/s worsening symptoms of catatonia. 4/2 - similar presentation to yesterday, no changes in mgmt. 4/3 - more spontaneous, better socially related. 11/20 - no change from yesterday, continue current mgmt. 11/21 - no change. 11/22- continue current med regimen, thought blocking, slowed 11/23 increase paliperidone to 6mg po daily, add ativan 1mg po TID. 11/24 more talkative with ativan and increase on paliperidone to 6mg po daily- will give NORRIS per paige of invega sustenna. continue current medications. 11/25 Brighter, appears to be tolerating paliperidone, Continue current treatment plan 11/26 continue current treatment plan 11/27- increase paliperidone to 12mg po daily due to paranoia and AH. 11/28 continue current medications. 11/29 continue current medications. 12/01- receive first Invega Sustenna 234mg IM, next 12/08 Invega Sustenna 156mg IM, then 234mg IM q monthly starting on 01/05 12/02: Continue current regimen and plans I spent minutes with the patient and/or on the patient floor today, greater than?50% of which was spent counseling/coordinating care. Reason for contiued inpatient stay Substantial Risk for: med/psych decompensation
[2021-12-02 21:55] VITALS: RESP 16
[2021-12-03 08:00] VITALS: BP 108/68; PULSE 101; RESP 18; TEMP 36.1; O2SAT 96
[2021-12-03] MEDS: Paliperidone ER 6 MG TAB.ER.24 12 MG PO (09:07)
[2021-12-03] MEDS: LORazepam 1 MG TABLET PO ×3 (09:07→21:59)
--- NOTE | 2021-12-03 09:48 | P.PNPSI_ITS ---
Subjective Subjective Date of Service: 12/03/21 Reason For Visit: Disorganized speech/behavior Subjective Notes: Section 7 Interim History: Patient was seen and discussed in rounds today. She has been visible, had a good day yesterday. Attending some groups. Denying some care with things like vital signs. She only took the Ativan yesterday. She continues to have episodes of incontinence. She was treated for UTI and I will repeat a UA. She does have her court hearing on 12/14 scheduled. Admits to some auditory hallucinations. No SI Review of Systems Review of Systems Yes all other systems are reviewed and are negative Mental Status Exam Mental Status Exam Narrative: Appearance: malnourished, thin, poor hygiene, more alert Behavior:cooperative psychomotor:less retardation noted Speech:mostly clear, soft tone, continues to have delayed response, spontaneous Thought process: reports thinking staff hurting children, persecutory delusions Thought content: wanting to go home, Affect: constricted Delusions:persecutory delusions AH present Insight/judgment:impaired x 2. fair-poor Memory/cog: alert, impaired s/s to psychiatric symptoms. Diagnostics Vital Signs (24Hr): Vital Signs - 24 hr 12/02/21 21:55 12/03/21 08:00 Temperature 96.9 F Pulse Rate 101 H Respiratory Rate 16 18 Blood Pressure 108/68 Pulse Oximetry 96 BMI result Body Mass Index 18.1 Labs Results: 11/14/21 14:52 11/16/21 08:34 Imaging Radiology Impressions: ITS Impressions Head CT 11/15/21 16:29 IMPRESSION: No acute intracranial hemorrhage or territorial infarction. 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 Query for any history of prior traumatic brain injury to account for these imaging findings. Medications Medications Current Medications Acetaminophen (Acetaminophen 325 Mg Tablet) 650 mg PO Q6H PRN PRN Reason: Headache/Pain Mild Scale (1-3) Last Admin: 11/27/21 17:56 Dose: 650 mg Documented by: Al Hydroxide/Mg Hydroxide (Magnesium Hydrox/Alum Hydrox 30 Ml Oral.Susp) 30 ml PO Q6H PRN PRN Reason: Heartburn/Nausea Magnesium Hydroxide (Milk Of Magnesia 30 Ml Oral.Susp) 30 ml PO DAILY PRN PRN Reason: Constipation Nicotine (Nicotine 14 Mg Patch.Td24) 14 mg TRANSDERMA DAILY IAN Last Admin: 12/03/21 09:08 Dose: Not Given Documented by: Nicotine Polacrilex (Nicotine Polacrilex Lozenge 2 Mg Lozenge) 2 mg BUCCAL Q1H PRN PRN Reason: Nicotine Cravings Paliperidone (Paliperidone Er 6 Mg Tab.Er.24) 12 mg PO DAILY [facility] Last Admin: 12/03/21 09:07 Dose: 12 mg Documented by: Paliperidone Palmitate (Paliperidone Palmitate 156 Mg/Ml Syringe) 156 mg IM ONCE ONE Stop: 12/08/21 08:01 Trazodone HCl (Trazodone Hcl 50 Mg Tablet) 50 mg PO BEDTIME PRN PRN Reason: Insomnia Last Admin: 12/01/21 21:03 Dose: 50 mg Documented by: Allergies Allergies Allergy/AdvReac Type Severity Reaction Status Date / Time divalproex sodium Allergy Mild CAUSES Unverified 05/05/20 17:02 [From DEPAKOTE] HAIR TO FALL OUT morphine [Morphine] Allergy Unknown UNKNOWN Unverified 05/05/20 17:02 clozapine [Clozapine] AdvReac Intermediate SEIZURE Unverified 05/05/20 17:02 Assessment & Plan Assessment & Plan (1) Schizoaffective disorder with good prognostic features and with catatonia: Status: Acute Code(s): F25.9 - Schizoaffective disorder, unspecified; 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 Kapoor is a 41 year-old woman with extensive hx of inpatient psych hospitalizations including in [facility]. MS. Kapoor was brought to [facility] [place] due to increase ability to care for herself, progressively becoming non verbal, mostly in her bed. This va underwriter order head ct- which did not show acute finding. Pt started on ativan for catatonia. Will monitor labs (due to poor intake), intake, mobility (monitor DVT prevention as not moving much). PLAN 1. admit to M3, section 12b, 15 minutes checks 2. increase ativan to 2mg po TID- 3. used to be on paliperidone with good effect per OP psych provider- Fernando Snowden 4. Coordination of care with outpatient providers, family and resources. 4/1- s/s of catatonia resolving with ativan, appears internally preoccupied. She does have Gibson that include Invega Sustenna, Haldol, clozaril, Loxapine, Olanzapine. Per OP provider Paliperidone seemed to be effective. Will start low dose of paliperidone 3mg po daily and monitor s/s worsening symptoms of catatonia. 11/18 - similar presentation to yesterday, no changes in mgmt. 11/19 - more spontaneous, better socially related. 11/20 - no change from yesterday, continue current mgmt. 11/21 - no change. 11/22- continue current med regimen, thought blocking, slowed 11/23 increase paliperidone to 6mg po daily, add ativan 1mg po TID. 11/24 more talkative with ativan and increase on paliperidone to 6mg po daily- will give NORRIS per gibson of invega sustenna. continue current medications. 11/25 Brighter, appears to be tolerating paliperidone, Continue current treatment plan 11/26 continue current treatment plan 11/27- increase paliperidone to 12mg po daily due to paranoia and AH. 11/28 continue current medications. 11/29 continue current medications. 12/01- receive first Invega Sustenna 234mg IM, next 12/08 Invega Sustenna 156mg IM, then 234mg IM q monthly starting on 01/05 12/02: Continue current regimen and plans 12/03: Continue current plans and encouraged to take medications. A UA was ordered I spent minutes with the patient and/or on the patient floor today, greater than?50% of which was spent counseling/coordinating care. Reason for contiued inpatient stay Substantial Risk for: med/psych decompensation
[2021-12-03 11:27] LABS: Appearance Urine CLEAR; Color Urine YELLOW; Glucose Urine UA NEG (NEG); Leukocyte Esterase Urine 1+ (NEG); Nitrite Urine NEG (NEG); Specific Gravity - Urine <= 1.005 (1.005-1.025); UACC Culture Trigger YES; Urine Blood NEG (NEG); Urine Ketones NEG (NEG); Urine Protein NEG (NEG-TRACE)
[2021-12-03 11:37] LABS: RBC Urine 0 /HPF (0); Squamous Epithelial Cell Urine TRACE /LPF; WBC Urine 0-2 /HPF (0-4)
[2021-12-03 21:58] VITALS: BP 112/58; PULSE 88; RESP 16; TEMP 36.3; O2SAT 96
[2021-12-04 08:23] VITALS: BP 102/71; PULSE 102; RESP 20; TEMP 36.2; O2SAT 97
[2021-12-04] MEDS: Paliperidone ER 6 MG TAB.ER.24 12 MG PO (09:00)
[2021-12-04] MEDS: LORazepam 1 MG TABLET PO ×3 (09:01→20:29)
--- NOTE | 2021-12-04 14:58 | HO.PSYCHPN ---
Subjective Subjective Date of Service: 12/04/21 Reason For Visit: Disorganized speech/behavior Interim History: Patient is disorganized. Drawbench Operator Helper introduced self as the doctor covering the unit. Patient says that she is good and asks when she will be discharging tomorrow since her mother was coming. Drawbench Operator Helper explained that there is already a court date set for a hearing on commitment; she asked a couple more times if she was being discharged tomorrow but then accepted there is a court date and wanted to asked to talk to her lower, the number provided by staff. Patient then came up to law writer and asked if this law writer was her co chairman, and it was repeated that law writer is the doctor covering the unit. UA was ordered due to incontinence however staff reports this maybe chronic. Mental Status Exam Mental Status Exam Narrative: Pt is alert and oriented; behavior is cooperative but disorganized; dressed in colorful pajamas; mood is described as good and affect constricted; eye contact appropriate; Speech is normal rate, volume and prosody and not pressured; no psychomotor agitation/retardation present; thought process goal oriented; Thought content is on discharge; denies any SI/HI. Patients insight and judgment are impaired. Diagnostics Vital Signs (24Hr): Vital Signs - 24 hr 12/03/21 21:58 12/04/21 08:23 Temperature 97.3 F 97.2 F Pulse Rate 88 102 H Respiratory Rate 16 20 Blood Pressure 112/58 L 102/71 Pulse Oximetry 96 97 BMI result Body Mass Index 18.1 Labs Results: 11/14/21 14:52 11/16/21 08:34 Labs: Laboratory Results - last 48 hr 12/03/21 11:10 Urine Color YELLOW Urine Appearance CLEAR Urine pH 6.0 Ur Specific [place] <= 1.005 Urine Protein NEG Urine Glucose (UA) NEG Urine Ketones NEG Urine Blood NEG Urine Nitrite NEG Ur Leukocyte Esterase 1+ H Urine RBC 0 Urine WBC 0-2 Ur Squamous Epith Cells TRACE Urine Bacteria NONE Imaging Radiology Impressions: ITS Impressions Head CT 11/15/21 16:29 IMPRESSION: No acute intracranial hemorrhage or territorial infarction. 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 Query for any history of prior traumatic brain injury to account for these imaging findings. Medications Medications Current Medications Acetaminophen (Acetaminophen 325 Mg Tablet) 650 mg PO Q6H PRN PRN Reason: Headache/Pain Mild Scale (1-3) Last Admin: 11/27/21 17:56 Dose: 650 mg Documented by: Al Hydroxide/Mg Hydroxide (Magnesium Hydrox/Alum Hydrox 30 Ml Oral.Susp) 30 ml PO Q6H PRN PRN Reason: Heartburn/Nausea Lorazepam (Lorazepam 1 Mg Tablet) 1 mg PO TID [facility] Last Admin: 12/04/21 14:45 Dose: 1 mg Documented by: Magnesium Hydroxide (Milk Of Magnesia 30 Ml Oral.Susp) 30 ml PO DAILY PRN PRN Reason: Constipation Nicotine (Nicotine 14 Mg Patch.Td24) 14 mg TRANSDERMA DAILY [facility] Last Admin: 12/04/21 09:02 Dose: Not Given Documented by: Nicotine Polacrilex (Nicotine Polacrilex Lozenge 2 Mg Lozenge) 2 mg BUCCAL Q1H PRN PRN Reason: Nicotine Cravings Paliperidone (Paliperidone Er 6 Mg Tab.Er.24) 12 mg PO DAILY [facility] Last Admin: 12/04/21 09:00 Dose: 12 mg Documented by: Paliperidone Palmitate (Paliperidone Palmitate 156 Mg/Ml Syringe) 156 mg IM ONCE ONE Stop: 12/08/21 08:01 Trazodone HCl (Trazodone Hcl 50 Mg Tablet) 50 mg PO BEDTIME PRN PRN Reason: Insomnia Last Admin: 12/01/21 21:03 Dose: 50 mg Documented by: Allergies Allergies Allergy/AdvReac Type Severity Reaction Status Date / Time divalproex sodium Allergy Mild CAUSES Unverified 05/05/20 17:02 [From DEPAKOTE] HAIR TO FALL OUT morphine [Morphine] Allergy Unknown UNKNOWN Unverified 05/05/20 17:02 clozapine [Clozapine] AdvReac Intermediate SEIZURE Unverified 05/05/20 17:02 Assessment & Plan Assessment & Plan (1) Schizoaffective disorder with good prognostic features and with catatonia: Status: Acute Code(s): F25.9 - Schizoaffective disorder, unspecified; 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 Kapoor is a 41 year-old woman with extensive hx of inpatient psych hospitalizations including in [facility]. MS. Kapoor was [place] [facility] to increase ability to care for herself, progressively becoming non verbal, mostly in her bed. This law writer order head ct- which did not show acute finding. Pt started on ativan for catatonia. Will monitor labs (due to poor intake), intake, mobility (monitor DVT prevention as not moving much). PLAN 1. admit to M3, section 12b, 15 minutes checks 2. increase ativan to 2mg po TID- 3. used to be on paliperidone with good effect per OP psych provider- Fernando Snowden 4. Coordination of care with outpatient providers, family and resources. 11/17- s/s of catatonia resolving with ativan, appears internally preoccupied. She does have Gibson that include Invega Sustenna, Haldol, clozaril, Loxapine, Olanzapine. Per OP provider Paliperidone seemed to be effective. Will start low dose of paliperidone 3mg po daily and monitor s/s worsening symptoms of catatonia. 11/18 - similar presentation to yesterday, no changes in mgmt. 11/19 - more spontaneous, better socially related. 11/20 - no change from yesterday, continue current mgmt. 11/21 - no change. 11/22- continue current med regimen, thought blocking, slowed 11/23 increase paliperidone to 6mg po daily, add ativan 1mg po TID. 11/24 more talkative with ativan and increase on paliperidone to 6mg po daily- will give NORRIS per gibson of invega sustenna. continue current medications. 11/25 Brighter, appears to be tolerating paliperidone, Continue current treatment plan 11/26 continue current treatment plan 11/27- increase paliperidone to 12mg po daily due to paranoia and AH. 11/28 continue current medications. 11/29 continue current medications. 12/01- receive first Invega Sustenna 234mg IM, next 12/08 Invega Sustenna 156mg IM, then 234mg IM q monthly starting on 01/05 12/02: Continue current regimen and plans 12/03: Continue current plans and encouraged to take medications. A UA was ordered 12/04 continue current regimen and plans; UA unremarkable and no complaints of dysuria I spent minutes with the patient and/or on the patient floor today, greater than?50% of which was spent counseling/coordinating care. Reason for contiued inpatient stay Substantial Risk for: inability to function
[2021-12-04 20:36] VITALS: BP 120/59; PULSE 105; TEMP 36.8; O2SAT 97
[2021-12-05 06:00] VITALS: BP 109/69; PULSE 87; RESP 16; TEMP 36.2; O2SAT 99
[2021-12-05] MEDS: LORazepam 1 MG TABLET PO ×3 (08:38→20:10)
[2021-12-05] MEDS: Paliperidone ER 6 MG TAB.ER.24 12 MG PO (08:38)
[2021-12-05] MEDS: Nicotine 14 MG PATCH.TD24 TRANSDERMA (08:39)
[2021-12-05] MEDS: Magnesium Hydrox/Alum Hydrox 30 ML ORAL.SUSP PO (11:58)
--- NOTE | 2021-12-05 17:22 | P.PNPSI_ITS ---
Subjective Subjective Date of Service: 12/05/21 Reason For Visit: Disorganized speech/behavior Interim History: calm, cooperative. more easily engaged than prior. looking forward to meeting with longterm staff and hoping to go home soon. per staff, fixated on discharge, feels safe on the unit. showered. U/A WNL. invega due 12/08. court 12/14. Mental Status Exam Mental Status Exam Narrative: Pt is alert and oriented; behavior is cooperative but disorganized; dressed in colorful pajamas; mood is described as good and affect constricted; eye contact appropriate; Speech is normal rate, volume and prosody and not pressured; no psychomotor agitation/retardation present; thought process goal oriented; Thought content is on discharge; denies any SI/HI. Patients insight and judgment are impaired. Diagnostics Vital Signs (24Hr): Vital Signs - 24 hr 12/04/21 20:36 12/05/21 06:00 Temperature 98.3 F 97.2 F Pulse Rate 105 H 87 Respiratory Rate 16 Blood Pressure 120/59 L 109/69 Pulse Oximetry 97 99 BMI result Body Mass Index 18.1 Labs Results: 11/14/21 14:52 11/16/21 08:34 Imaging Radiology Impressions: ITS Impressions Head CT 11/15/21 16:29 IMPRESSION: No acute intracranial hemorrhage or territorial infarction. 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 Query for any history of prior traumatic brain injury to account for these imaging findings. Medications Medications Current Medications Acetaminophen (Acetaminophen 325 Mg Tablet) 650 mg PO Q6H PRN PRN Reason: Headache/Pain Mild Scale (1-3) Last Admin: 11/27/21 17:56 Dose: 650 mg Documented by: Al Hydroxide/Mg Hydroxide (Magnesium Hydrox/Alum Hydrox 30 Ml Oral.Susp) 30 ml PO Q6H PRN PRN Reason: Heartburn/Nausea Last Admin: 12/05/21 11:58 Dose: 30 ml Documented by: Lorazepam (Lorazepam 1 Mg Tablet) 1 mg PO TID [facility] Last Admin: 12/05/21 14:55 Dose: 1 mg Documented by: Magnesium Hydroxide (Milk Of Magnesia 30 Ml Oral.Susp) 30 ml PO DAILY PRN PRN Reason: Constipation Nicotine (Nicotine 14 Mg Patch.Td24) 14 mg TRANSDERMA DAILY [facility] Last Admin: 12/05/21 08:39 Dose: 14 mg Documented by: Nicotine Polacrilex (Nicotine Polacrilex Lozenge 2 Mg Lozenge) 2 mg BUCCAL Q1H PRN PRN Reason: Nicotine Cravings Paliperidone (Paliperidone Er 6 Mg Tab.Er.24) 12 mg PO DAILY [facility] Last Admin: 12/05/21 08:38 Dose: 12 mg Documented by: Paliperidone Palmitate (Paliperidone Palmitate 156 Mg/Ml Syringe) 156 mg IM ONCE ONE Stop: 12/08/21 08:01 Trazodone HCl (Trazodone Hcl 50 Mg Tablet) 50 mg PO BEDTIME PRN PRN Reason: Insomnia Last Admin: 12/01/21 21:03 Dose: 50 mg Documented by: Allergies Allergies Allergy/AdvReac Type Severity Reaction Status Date / Time divalproex sodium Allergy Mild CAUSES Unverified 05/05/20 17:02 [From DEPAKOTE] HAIR TO FALL OUT morphine [Morphine] Allergy Unknown UNKNOWN Unverified 05/05/20 17:02 clozapine [Clozapine] AdvReac Intermediate SEIZURE Unverified 05/05/20 17:02 Assessment & Plan Assessment & Plan (1) Schizoaffective disorder with good prognostic features and with catatonia: Status: Acute Code(s): F25.9 - Schizoaffective disorder, unspecified; 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 Kapoor is a 41 year-old woman with extensive hx of inpatient psych hospitalizations including in [facility]. MS. Kapoor [place] [facility] [place] increase ability to care for herself, progressively becoming non verbal, mostly in her bed. This proposal writer order head ct- which did not show acute finding. Pt started on ativan for catatonia. Will monitor labs (due to poor intake), intake, mobility (monitor DVT prevention as not moving much). PLAN 1. admit to M3, section 12b, 15 minutes checks 2. increase ativan to 2mg po TID- 3. used to be on paliperidone with good effect per OP psych provider- Fernando Snowden 4. Coordination of care with outpatient providers, family and resources. 4/1- s/s of catatonia resolving with ativan, appears internally preoccupied. She does have [place] that include Invega Sustenna, Haldol, clozaril, Loxapine, Olanzapine. Per OP provider Paliperidone seemed to be effective. Will start low dose of paliperidone 3mg po daily and monitor s/s worsening symptoms of catatonia. 11/18 - similar presentation to yesterday, no changes in mgmt. 11/19 - more spontaneous, better socially related. 11/20 - no change from yesterday, continue current mgmt. 11/21 - no change. 11/22- continue current med regimen, thought blocking, slowed 11/23 increase paliperidone to 6mg po daily, add ativan 1mg po TID. 11/24 more talkative with ativan and increase on paliperidone to 6mg po daily- will give NORRIS per paige of invega sustenna. continue current medications. 11/25 Brighter, appears to be tolerating paliperidone, Continue current treatment plan 11/26 continue current treatment plan 11/27- increase paliperidone to 12mg po daily due to paranoia and AH. 11/28 continue current medications. 11/29 continue current medications. 12/01- receive first Invega Sustenna 234mg IM, next 12/08 Invega Sustenna 156mg IM, then 234mg IM q monthly starting on 01/05 12/02: Continue current regimen and plans 12/03: Continue current plans and encouraged to take medications. A UA was ordered 12/04 continue current regimen and plans; UA unremarkable and no complaints of dysuria I spent __25____ minutes with the patient and/or on the patient floor today, greater than?50% of which was spent counseling/coordinating care. Reason for contiued inpatient stay Substantial Risk for: inability to function and rapid decompensation
[2021-12-05 18:00] VITALS: BP 110/74; PULSE 98; RESP 16; TEMP 36.4; O2SAT 98
[2021-12-05 20:20] VITALS: BP 108/67; PULSE 97; TEMP 36.6; O2SAT 94
[2021-12-06 06:00] VITALS: BP 110/71; PULSE 95; RESP 16; TEMP 36.6; O2SAT 98
[2021-12-06] MEDS: Nicotine 14 MG PATCH.TD24 TRANSDERMA (08:46)
[2021-12-06] MEDS: Paliperidone ER 6 MG TAB.ER.24 12 MG PO (08:47)
[2021-12-06] MEDS: LORazepam 1 MG TABLET PO ×3 (08:47→20:59)
--- NOTE | 2021-12-06 14:06 | P.PNPSI_ITS ---
Subjective Subjective Date of Service: 12/06/21 Reason For Visit: Disorganized speech/behavior Interim History: similar presentation to yesterday, perhaps a bit more activated, walking the halls and now apparently talking to herself. on interview, discuss the imminent visit of her alf staff member and that person's role in her discharge as someone who will be able to comment on her proximity to her baseline. asking for a cigarette. otherwise no questions or complainst. per staff, walking the halls, talking and laughing. eating well. dep 4 and anxiety 8. CAH to read the bible. toileted with prompts. slept well. no AH in [place]. Mental Status Exam Mental Status Exam Narrative: Pt is alert and oriented; behavior is cooperative but disorganized; dressed in colorful pajamas; mood is described as good and affect constricted; eye contact appropriate; Speech is normal rate, volume and prosody and not pressured; no psychomotor agitation/retardation present; thought process goal oriented; Thought content is on discharge; denies any SI/HI. Patients insight and judgment are impaired. Diagnostics Vital Signs (24Hr): Vital Signs - 24 hr 12/05/21 18:00 12/05/21 20:20 12/06/21 06:00 Temperature 97.6 F 97.9 F 97.8 F Pulse Rate 98 97 95 Respiratory Rate 16 16 Blood Pressure 110/74 108/67 110/71 Pulse Oximetry 98 94 98 BMI result Body Mass Index 18.1 Labs Results: 11/14/21 14:52 11/16/21 08:34 Imaging Radiology Impressions: ITS Impressions Head CT 11/15/21 16:29 IMPRESSION: No acute intracranial hemorrhage or territorial infarction. 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 Query for any history of prior traumatic brain injury to account for these imaging findings. Medications Medications Current Medications Acetaminophen (Acetaminophen 325 Mg Tablet) 650 mg PO Q6H PRN PRN Reason: Headache/Pain Mild Scale (1-3) Last Admin: 11/27/21 17:56 Dose: 650 mg Documented by: Al Hydroxide/Mg Hydroxide (Magnesium Hydrox/Alum Hydrox 30 Ml Oral.Susp) 30 ml PO Q6H PRN PRN Reason: Heartburn/Nausea Last Admin: 12/05/21 11:58 Dose: 30 ml Documented by: Lorazepam (Lorazepam 1 Mg Tablet) 1 mg PO TID [facility] Last Admin: 12/06/21 08:47 Dose: 1 mg Documented by: Magnesium Hydroxide (Milk Of Magnesia 30 Ml Oral.Susp) 30 ml PO DAILY PRN PRN Reason: Constipation Nicotine (Nicotine 14 Mg Patch.Td24) 14 mg TRANSDERMA DAILY [facility] Last Admin: 12/06/21 08:46 Dose: 14 mg Documented by: Nicotine Polacrilex (Nicotine Polacrilex Lozenge 2 Mg Lozenge) 2 mg BUCCAL Q1H PRN PRN Reason: Nicotine Cravings Paliperidone (Paliperidone Er 6 Mg Tab.Er.24) 12 mg PO DAILY [facility] Last Admin: 12/06/21 08:47 Dose: 12 mg Documented by: Paliperidone Palmitate (Paliperidone Palmitate 156 Mg/Ml Syringe) 156 mg IM ONCE ONE Stop: 12/08/21 08:01 Trazodone HCl (Trazodone Hcl 50 Mg Tablet) 50 mg PO BEDTIME PRN PRN Reason: Insomnia Last Admin: 12/01/21 21:03 Dose: 50 mg Documented by: Allergies Allergies Allergy/AdvReac Type Severity Reaction Status Date / Time divalproex sodium Allergy Mild CAUSES Unverified 05/05/20 17:02 [From DEPAKOTE] HAIR TO FALL OUT morphine [Morphine] Allergy Unknown UNKNOWN Unverified 05/05/20 17:02 clozapine [Clozapine] AdvReac Intermediate SEIZURE Unverified 05/05/20 17:02 Assessment & Plan Assessment & Plan (1) Schizoaffective disorder with good prognostic features and with catatonia: Status: Acute Code(s): F25.9 - Schizoaffective disorder, unspecified; 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 Kapoor is a 41 year-old woman with extensive hx of inpatient psych hospitalizations including in [facility]term state psych facilities. MS. Kapoor was brought to [facility] due to increase ability to care for herself, progressively becoming non verbal, mostly in her bed. This property underwriter order head ct- which did not show acute finding. Pt started on ativan for catatonia. Will monitor labs (due to poor intake), intake, mobility (monitor DVT prevention as not moving much). PLAN 1. admit to M3, section 12b, 15 minutes checks 2. increase ativan to 2mg po TID- 3. used to be on paliperidone with good effect per OP psych provider- Fernando Snowden 4. Coordination of care with outpatient providers, family and resources. 11/17- s/s of catatonia resolving with ativan, appears internally preoccupied. She does have [place] that include Invega Sustenna, Haldol, clozaril, Loxapine, Olanzapine. Per OP provider Paliperidone seemed to be effective. Will start low dose of paliperidone 3mg po daily and monitor s/s worsening symptoms of catatonia. 11/18 - similar presentation to yesterday, no changes in mgmt. 11/19 - more spontaneous, better socially related. 11/20 - no change from yesterday, continue current mgmt. 11/21 - no change. 11/22- continue current med regimen, thought blocking, slowed 11/23 increase paliperidone to 6mg po daily, add ativan 1mg po TID. 11/24 more talkative with ativan and increase on paliperidone to 6mg po daily- will give NORRIS per gibson of invega sustenna. continue current medications. 11/25 Brighter, appears to be tolerating paliperidone, Continue current treatment plan 11/26 continue current treatment plan 11/27- increase paliperidone to 12mg po daily due to paranoia and AH. 11/28 continue current medications. 11/29 continue current medications. 12/01- receive first Invega Sustenna 234mg IM, next 12/08 Invega Sustenna 156mg IM, then 234mg IM q monthly starting on 01/05 12/02: Continue current regimen and plans 12/03: Continue current plans and encouraged to take medications. A UA was ordered 12/04 continue current regimen and plans; UA unremarkable and no complaints of dysuria I spent ___20___ minutes with the patient and/or on the patient floor today, greater than?50% of which was spent counseling/coordinating care. Reason for contiued inpatient stay Substantial Risk for: inability to function and rapid decompensation
[2021-12-06 18:00] VITALS: BP 126/83; PULSE 86; RESP 16; TEMP 36.6; O2SAT 96
[2021-12-07 07:00] VITALS: BMI 18.4
[2021-12-07 07:55] VITALS: BP 129/68; PULSE 88; RESP 16; TEMP 36.6; O2SAT 98
[2021-12-07] MEDS: Nicotine 14 MG PATCH.TD24 TRANSDERMA (09:35)
[2021-12-07] MEDS: Paliperidone ER 6 MG TAB.ER.24 12 MG PO (09:36)
[2021-12-07] MEDS: LORazepam 1 MG TABLET PO ×3 (09:36→20:24)
--- NOTE | 2021-12-07 13:09 | P.PNPSI_ITS ---
Subjective Subjective Date of Service: 12/07/21 Reason For Visit: Disorganized speech/behavior Interim History: Pt pacing on jones. Pt reports sleeping and eating well. No episodes of incont inence. Pt seen by staff, who report pt appears more organized and close to her baseline. Pt denies SI/HI. She denies AH- although this report has been inconsistent- at times denies others reports hearing voices. No behavioral concerns. Medication Compliance: Yes Review of Systems Review of Systems unchanged Yes all other systems are reviewed and are negative, Unobtainable due to mental status and Other Mental Status Exam Mental Status Exam Narrative: Pt is alert and oriented; behavior is cooperative but disorganized; dressed in colorful pajamas; mood is described as good and affect constricted; eye contact appropriate; Speech is normal rate, volume and prosody and not pressured; no psychomotor agitation/retardation present; thought process goal oriented; Thought content is on discharge; denies any SI/HI. Patients insight and judgment are impaired. Diagnostics Vital Signs (24Hr): Vital Signs - 24 hr 12/06/21 18:00 12/07/21 07:55 Temperature 97.8 F 98 F Pulse Rate 86 88 Respiratory Rate 16 16 Blood Pressure 126/83 129/68 Pulse Oximetry 96 98 BMI result Body Mass Index 18.4 Labs Results: 11/14/21 14:52 11/16/21 08:34 Imaging Radiology Impressions: ITS Impressions Head CT 11/15/21 16:29 IMPRESSION: No acute intracranial hemorrhage or territorial infarction. 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 Query for any history of prior traumatic brain injury to account for these imaging findings. Medications Medications Current Medications Acetaminophen (Acetaminophen 325 Mg Tablet) 650 mg PO Q6H PRN PRN Reason: Headache/Pain Mild Scale (1-3) Last Admin: 11/27/21 17:56 Dose: 650 mg Documented by: Al Hydroxide/Mg Hydroxide (Magnesium Hydrox/Alum Hydrox 30 Ml Oral.Susp) 30 ml PO Q6H PRN PRN Reason: Heartburn/Nausea Last Admin: 12/05/21 11:58 Dose: 30 ml Documented by: Lorazepam (Lorazepam 1 Mg Tablet) 1 mg PO TID IAN Last Admin: 12/07/21 09:36 Dose: 1 mg Documented by: Magnesium Hydroxide (Milk Of Magnesia 30 Ml Oral.Susp) 30 ml PO DAILY PRN PRN Reason: Constipation Nicotine (Nicotine 14 Mg Patch.Td24) 14 mg TRANSDERMA DAILY [facility] Last Admin: 12/07/21 09:35 Dose: 14 mg Documented by: Nicotine Polacrilex (Nicotine Polacrilex Lozenge 2 Mg Lozenge) 2 mg BUCCAL Q1H PRN PRN Reason: Nicotine Cravings Paliperidone (Paliperidone Er 6 Mg Tab.Er.24) 12 mg PO DAILY [facility] Last Admin: 12/07/21 09:36 Dose: 12 mg Documented by: Paliperidone Palmitate (Paliperidone Palmitate 156 Mg/Ml Syringe) 156 mg IM ONCE ONE Stop: 12/08/21 08:01 Trazodone HCl (Trazodone Hcl 50 Mg Tablet) 50 mg PO BEDTIME PRN PRN Reason: Insomnia Last Admin: 12/01/21 21:03 Dose: 50 mg Documented by: Allergies Allergies Allergy/AdvReac Type Severity Reaction Status Date / Time divalproex sodium Allergy Mild CAUSES Unverified 05/05/20 17:02 [From DEPAKOTE] HAIR TO FALL OUT morphine [Morphine] Allergy Unknown UNKNOWN Unverified 05/05/20 17:02 clozapine [Clozapine] AdvReac Intermediate SEIZURE Unverified 05/05/20 17:02 Assessment & Plan Assessment & Plan (1) Schizoaffective disorder with good prognostic features and with catatonia: Status: Acute Code(s): F25.9 - Schizoaffective disorder, unspecified; 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 Kapoor is a 41 year-old woman with extensive hx of inpatient psych h ospitalizations including in intermediate state psych facilities. MS. Kapoor was brought to [facility] due to increase ability to care for herself, progressively becoming non verbal, mostly in her bed. This database report writer order head ct- which did not show acute finding. Pt started on ativan for catatonia. Will monitor labs (due to poor intake), intake, mobility (monitor DVT prevention as not moving much). PLAN 1. admit to M3, section 12b, 15 minutes checks 2. increase ativan to 2mg po TID- 3. used to be on paliperidone with good effect per OP psych provider- Fernando Snowden 4. Coordination of care with outpatient providers, family and resources. 11/17- s/s of catatonia resolving with ativan, appears internally preoccupied. She does have Gibson that include Invega Sustenna, Haldol, clozaril, Loxapine, Ol anzapine. Per OP provider Paliperidone seemed to be effective. Will start low dose of paliperidone 3mg po daily and monitor s/s worsening symptoms of catatonia. 11/18 - similar presentation to yesterday, no changes in mgmt. 11/19 - more spontaneous, better socially related. 11/20 - no change from yesterday, continue current mgmt. 11/21 - no change. 11/22- continue current med regimen, thought blocking, slowed 11/23 increase paliperidone to 6mg po daily, add ativan 1mg po TID. 11/24 more talkative with ativan and increase on paliperidone to 6mg po daily- will give NORRIS per gibson of invega sustenna. continue current medications. 11/25 Brighter, appears to be tolerating paliperidone, Continue current treatment plan 11/26 continue current treatment plan 11/27- increase paliperidone to 12mg po daily due to paranoia and AH. 11/28 continue current medications. 11/29 continue current medications. 12/01- receive first Invega Sustenna 234mg IM, next 12/08 Invega Sustenna 156mg IM, then 234mg IM q monthly starting on 01/05 12/02: Continue current regimen and plans 12/03: Continue current plans and encouraged to take medications. A UA was ordered 12/04 continue current regimen and plans; UA unremarkable and no complaints of dysuria 12/07- d. tomorrow continue current medications. I spent __25____ minutes with the patient and/or on the patient floor today, greater than?50% of which was spent counseling/coordinating care. Reason for contiued inpatient stay Substantial Risk for: stable for discharge
[2021-12-07 20:21] VITALS: BP 118/75; PULSE 86; RESP 16; TEMP 36.6; O2SAT 97
[2021-12-08] MEDS: LORazepam 1 MG TABLET PO (08:22)
[2021-12-08] MEDS: Paliperidone ER 6 MG TAB.ER.24 12 MG PO (08:22)
[2021-12-08 08:24] VITALS: BP 154/93; PULSE 99; RESP 18; TEMP 36.2; O2SAT 98
--- NOTE | 2021-12-08 09:06 | PM.PSYDC ---
DS: Providers Provider Date of Service: 12/08/21 Date of admission: 11/14/21 18:39 Primary care physician: Unknown Physician DS: Diagnosis Discharge Diagnosis (1) Schizoaffective disorder with good prognostic features and with catatonia: Status: Acute DS: Medications Discharge Medications Home Medications: Previous Rx's Medication Instructions Recorded lorazepam 1 mg tablet 1 mg PO TID #45 tab 12/08/21 nicotine 14 mg/24 hr daily 14 mg TRANSDERMAL DAILY #30 ea 12/08/21 transdermal patch paliperidone palmitate 234 mg/1.5 234 mg (1.5 mL) IM Q30D #1.5 ml 12/08/21 mL intramuscular syringe (Invega Sustenna) trazodone 50 mg tablet 50 mg PO BEDTIME PRN #30 tab 12/08/21 Mental Status Exam Mental Status Exam Narrative: Pt is alert and oriented; behavior is cooperative but somewhat disorganized; dressed in colorful pajamas; mood is described as good and affect constricted; eye contact appropriate; Speech is normal rate, volume and prosody and not pressured; no psychomotor agitation/retardation present; thought process goal oriented (looking forward to being discharge); Thought content is on discharge, no overt delusional content reported; residual AH, but not command. denies any SI/HI. Patients insight and judgment are impaired at baseline with suspected intellectual disability. Data Data Completed and Pending Completed studies during hospitalization [Text1]: 12/03/21 11:10 Urine Color YELLOW Urine Appearance CLEAR Urine pH 6.0 Ur Specific Shelby <= 1.005 Urine Protein NEG Urine Glucose (UA) NEG Urine Ketones NEG Urine Blood NEG Urine Nitrite NEG Ur Leukocyte Esterase 1+ H Urine RBC 0 Urine WBC 0-2 Ur Squamous Epith Cells TRACE Urine Bacteria NONE 12/03/21 11:28 Urine clean catch - Clean Catch Midstream Urine Culture - Final 11/13/21 20:10 Urine clean catch - Urine thompson top Urine Culture - Final No growth. Imaging Diagnostic Imaging Impressions Head CT 11/15/21 16:29 IMPRESSION: No acute intracranial hemorrhage or territorial infarction. 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 Query for any history of prior traumatic brain injury to account for these imaging findings. DS: Summary Hospital Course Hospital Course: Date of Service: 11/15/21 Chief Complaint: Disorganized speech/behavior Sources of Information: patient interviewed, chart reviewed and crisis/core team assessment reviewed Additional Sources of Information: Danielle Echevarria- guardian and mother- [phone] Renée ([facility] staff) [phone] Fernando Snowden APRN prescriber. HPI Subjective Notes: Hickey Warning and Section 12B Guardianship: Yes (mother) Narrative: Ms. Kapoor is a 41 year-old woman with hx of schizoaffective disorder and cocaine use disorder with multiple inpatient psychiatric admission including to [facility]. Ms. Kapoor was brought via EMS to [facility] ED due to pt presenting as unable to care for self, mostly in bed, no engaging in self care, poor appetite, minimally verbal for the past 2 months but worse in past few weeks. [facility] resides at [facility] since last year in January 2021 after she was discharge from a year long admission to psychiatric hospital [facility]. Per staff, pt has been home for the past 2 months and they do not suspect that she has been using any substances. In the ED, her utox was negative. CMP and CBC unremarkable. On the unit, pt is minimally verbal, may open eyes and say few words but will not answer questions directly. Pt appears malnourished. This job specification writer ordered head CT to rule out medical condition to explain such drastic change in mental status- but no acute pathology seen. Pt did appear to be slightly more verbal with po ativan, she declined IM ativan. Past Psychiatric History: Inpatient: [facility] d/c on 01/2021; 01/14/20- [facility]; 06/26/19;08/30/18 [facility]; 05/23/2016 [place]; [facility] for 9 months in [facility] ? OP: [facility] Fernando Snowden GUardian- mother Danielle Echevarria ? Past medication trials: paliperidone, clozaril, depakote Medical Evaluation Reviewed: Yes HOSPITAL COURSE On the unit, Ms. Abarca was initially admitted on a section 12b given that pt was not verbal due to s/s of catatonia. Pt was started on ativan for catatonia, which she tolerated well and was effective. Ms. Kapoor gradually presented as more talkative, slightly more organized, she was no longer incontinent of stool or urine. She was increasingly more visible and eating better. She did report hearing voices, thinking that someone was hurting children. Pt reported voices were overwhelming at times. Ms. Kapoor agreed to start paliperidone- per [facility], which her outpatient provider, Fernando Snowden reports was helpful in the past but pt was only taking a small dose of 3mg po daily. Pt was given Invega Sustenna 234mg IM on 12/01/21, second loading dose of 156mg IM on 12/08 with plan to continue monthly dose of 234mg IM, next dose on 12/31/21. Gracy reported less AH, denied SI/HI throughout this admission. She did not show any signs of aggression towards self or others. There were no incidences of disruptive behaviors nor need for restraints. Ativan was lowered and tapered but pt regressed and started to show symptoms of catatonia, therefore was restarted and continued. May assess in the community if lower dose of ativan is possible without symptoms of catatonia. Collateral information was gathered from staff who visited pt prior to discharge and reported that pt appeared in much improved condition and denied any safety concerns. Time spent discussing smoking cessation with patient: 3 to 10 minutes Status at Discharge Cognitive/behavioral status at discharge: Pt brighter, non labile, residual AH but not command. No SI/HI. No signs of aggression towards self or others. Pt is no longer showing s/s of catatonia and her sleep/appetite have improved. Her overall capacity to care for herself has improved- no incontinence, eating on her own. She does seem to have underlying intellectual disability which limits her insight/judgment. Functional status at discharge: independent ambulation Overall status at discharge: patient is progressing back to baseline Time Spent with Patient Time attestation: Total time spent providing and/or coordinating discharge services: Time spent: Greater than 30 minutes Discharge Plan Discharge Patient Disposition: Home, Self-Care Discharge Diagnosis: Schizoaffective disorder, bipolar type Referrals: Fernando Snowden (psychiatrist) [Other] - 12/28/21 1:00 pm (In person appointment) Fernando Snowden (psychiatrist) [Other] - 01/11/22 9:00 am (In person appointment) [facility] [Physician] - 1 Week Discharge Medications: New nicotine 14 mg/24 hr Patch 24 Hour 14 mg transdermal DAILY Qty: 30 0RF lorazepam 1 mg Tablet 1 mg PO TID Qty: 45 0RF trazodone 50 mg Tablet 50 mg PO BEDTIME PRN (Reason: Insomnia) Qty: 30 0RF Invega Sustenna 234 mg/1.5 mL syringe 234 mg IM Q30D Qty: 1.5 0RF Rx Instructions: Next dose on 12/31/2021 Discontinued paliperidone 3 mg tablet extended release 24 hr 1 tab PO BEDTIME 0RF Discharge Orders: Discharge Order (Routine); Ordered 12/08/21 Ordered By: Kimberly Sotelo Diet: regular diet Activity on Discharge: As tolerated Stand Alone Forms: Patient Portal Discharge page Care Plan Goals: 1. Maintain mood 2. No SI/HI 3. No signs of catatonia Health Concerns: Follow up with PCP for routine care Plan of Treatment: 1. Take medications as prescribed. 2. Go to nearest ED or call 911 in event of emergency Assessment: Pt with brighter affect. No signs of catatonia, no SI/HI. residual AH, no overt delusional content reported. suspect underlying intellectual disability which affect her insight/judgment even when psychiatrically stable. No signs of aggression towards self or others.
[2021-12-08] MEDS: Paliperidone Palmitate 156 MG/ML SYRINGE IM (10:10)
--- NOTE | 2021-12-08 10:21 | PC.NURSE ---
Patient accepted IM Paliperidone as ordered without concerns. Encouraged her several times by many staff to shower and launder clothes before discharge but patient declined, stating that she wants to do this when she gets home.
--- NOTE | 2021-12-08 12:18 | PC.NURSE ---
Patient alert, oriented x3. Denies AH, denies VH. Reports she is eager to leave. Reviewed discharge instructions with patient- verbalized understanding, no questions or concerns asked or reported. Patient reports she is ready to leave, feels safe, denies SI or HI.
== END 2021-12-08 12:20 | disposition home or self-care (01) | DRG 885 ==
LOC: HO.ED 11-14 18:28 → HO.PADLT16 11-14 18:46
PROVIDERS: Physician Assistant; Psychiatry & Neurology Psychiatry; Admitting Provider Psychiatry & Neurology Psychiatry; Emergency Provider Emergency Medicine; Visit Provider Social Worker
DX: F25.9 Schizoaffective disorder, unspecified (principal); F06.1 Catatonic disorder due to known physiological condition; Z20.822 Contact with and (suspected) exposure to COVID-19; Z62.810 Personal history of physical and sexual abuse in childhood; Z88.5 Allergy status to narcotic agent; Z88.8 Allergy status to other drugs, medicaments and biological substances; Z79.899 Other long term (current) drug therapy
CPT/HCPCS: 36415; 70450; 80048; 80053; 80061; 80307; 81001; 81025; 82140; 83036; 85025; 85379; 86704; 86706; 86709; 86780; 86803; 87086; 87340; 87389; 87635; 93005; 99285; J2426

== ENCOUNTER 2022-09-18 12:12 | Outpatient (REF) | payer OTHER, SELFPAY ==
--- NOTE | ~2022-09-18 | XR_ITS ---
EXAMINATION: XR KNEE, RIGHT CLINICAL INFORMATION: Sprain of right knee COMPARISON: None TECHNIQUE: Four views of the right knee. FINDINGS: The alignment is normal without joint space narrowing or acute osseous abnormality. Tiny osteophytes are seen at the medial joint margin. A small to moderate right knee effusion is identified. XR/XR knee RT 4V IMPRESSION: Small to moderate right knee effusion. Normal alignment. No acute osseous abnormality is seen. Minimal degenerative change at the medial joint margin.
== END 2022-09-18 12:13 | disposition home or self-care (01) ==
LOC: HO.HMGCX 12:12
PROVIDERS: PCP Student in an Organized Health Care Education/Training Program; Visit Provider Internal Medicine
DX: S83.91XA Sprain of unspecified site of right knee, initial encounter (principal)
CPT/HCPCS: 73564

== ENCOUNTER 2022-11-07 12:12 | Emergency (ER) | payer OTHER, SELFPAY ==
[2022-11-07 12:15] VITALS: BP 92/69; PULSE 104; RESP 16; TEMP 36.4; O2SAT 98; BMI 26.4
--- NOTE | 2022-11-07 12:20 | ECG_ITS ---
Test Reason : ALTERED MENTAL Blood Pressure : / mmHG Vent. Rate : 095 BPM Atrial Rate : 095 BPM P-R Int : 130 ms QRS Dur : 084 ms QT Int : 356 ms P-R-T Axes : 038 093 023 degrees QTc Int : 447 ms Normal sinus rhythm Rightward axis Borderline ECG When compared with ECG of 14-NOV-2021 15:02, Vent. rate has increased BY 49 BPM T wave inversion no longer evident in Anterior leads QT has lengthened Referred By: Amrik Watson Electronically Signed By:ARIS MARSHALL MD
--- NOTE | 2022-11-07 12:23 | ED_ITS ---
HPI - General Adult General Chief complaint: Psychiatric Symptoms <Amrik Watson - Last Filed: 11/07/22 12:26> Stated complaint: medical clearance <Amrik Watson - Last Filed: 11/07/22 12:26> Time Seen by Provider: 11/07/22 14:04 <Amrik Watson - Last Filed: 11/07/22 12:26> Source: patient <SCAR Motta - Last Filed: 11/07/22 17:51> Mode of arrival: ambulatory <SCAR Motta - Last Filed: 11/07/22 17:51> History of Present Illness HPI narrative: 42-year-old female with a past medical history of depression presenting to the ED for medical clearance to return back to [facility] with CHD. Per patient and CHD worker patient eloped facility and was at unknown location for a week and a half, however now would like to return. Reports cocaine use. Patient was not compliant with her medications while not at facility as facility had them. Denies SI/HI. Denies EtOH, CP/SOB, abdominal pain, nausea/vomiting <SCAR Motta - Last Filed: 11/07/22 17:51> Onset (ago): unknown <SCAR Motta - Last Filed: 11/07/22 17:51> Related Data Home medications: Home Medications Medication Instructions Recorded Confirmed albuterol sulfate 90 mcg/actuation 0 mcg inhalation 09/18/22 aerosol inhaler benztropine 0.5 mg tablet 0 mg PO 09/18/22 melatonin 3 mg tablet 3 mg PO BEDTIME 09/18/22 risperidone 2 mg tablet 2 mg PO BID 09/18/22 Previous Rx's Medication Instructions Recorded nicotine 14 mg/24 hr daily 14 mg transdermal DAILY #30 ea 12/08/21 transdermal patch paliperidone palmitate 234 mg/1.5 234 mg (1.5 mL) IM Q30D #1.5 mL 12/08/21 mL intramuscular syringe (Invega Sustenna) meloxicam 15 mg tablet 15 mg PO DAILY #14 tabs 09/19/22 <Amrik Watson - Last Filed: 11/07/22 12:26> Allergies/adverse reactions: Allergies Allergy/AdvReac Type Severity Reaction Status Date / Time divalproex sodium Allergy Mild CAUSES Verified 09/18/22 12:04 [From DEPAKOTE] HAIR TO FALL OUT morphine [Morphine] Allergy Unknown UNKNOWN Verified 09/18/22 12:04 clozapine [Clozapine] AdvReac Intermediate SEIZURE Verified 09/18/22 12:04 <Amrik Watson - Last Filed: 11/07/22 12:26> Review of Systems Review of Systems: Constitutional: No Fever, No Chills,No Fatigue, No Malaise ENT/Mouth: No Ear Pain, No Nasal Congestion, No sore throat, No Rhinorrhea, No Swallowing Difficulty Eyes: No Eye Pain, No Swelling, No Redness Cardiovascular: No Chest Pain, No SOB, No Edema, No Palpitations Respiratory: No Cough, No Sputum, No Dyspnea Gastrointestinal: No Nausea, No Vomiting, No Diarrhea, No Constipation, No Abdominal pain Musculoskeletal: No joint pain, No Myalgias, No Joint Swelling Skin: No Skin Lesions, No rash Neuro: No Weakness, No Loss of Consciousness, No Dizziness, No Headache Psych: No Anxiety/Panic, No Depression, No SI/HI/AH/VH, + Social Issues <SCAR Motta - Last Filed: 11/07/22 17:51> Yes all other systems are reviewed and are negative <SCAR Motta - Last Filed: 11/07/22 17:51> Constitutional: Constitutional: Reports as per HPI <SCAR Motta - Last Filed: 11/07/22 17:51> PMFSH Past Medical History Attestation statement: The following information was validated with the patient. <SCAR Motta - Last Filed: 11/07/22 17:51> Medical History: Medical History Depression, unspecified <Amrik Watson - Last Filed: 11/07/22 12:26> Social History Social History: Social History Household Members: Other Household Members Other:: [facility]entiary Housing: Other Housing Other:: Penitentiary Unable to assess alcohol history related to: Unable to respond Patient Tobacco Use Status: Current everyday Tobacco user Substance Use Type: Crack/Cocaine Advance Directives: No Advance Directives Information Provided: No service: No Sexual orientation: Unknown. <Amrik Watson - Last Filed: 11/07/22 12:26> Physical Exam ED Vital Signs: Vital Signs - 24 hr 11/07/22 12:15 Temperature 97.6 F Pulse Rate 104 H Respiratory Rate 16 Blood Pressure 92/69 Pulse Oximetry 98 Oxygen Delivery Method Room Air BMI result Body Mass Index 26.4 <Amrik Watson - Last Filed: 11/07/22 12:26> Vital Signs - 24 hr 11/07/22 12:15 Temperature 97.6 F Pulse Rate 104 H Respiratory Rate 16 Blood Pressure 92/69 Pulse Oximetry 98 Oxygen Delivery Method Room Air BMI result Body Mass Index 26.4 <SCAR Motta - Last Filed: 11/07/22 17:51> Const General: cooperative, comfortable and no acute distress <SCAR Motta - Last Filed: 11/07/22 17:51> Orientation/consciousness: patient oriented x3 <SCAR Motta - Last Filed: 11/07/22 17:51> Limitations: no limitations <SCAR Motta - Last Filed: 11/07/22 17:51> HENMT Head: Yes normal to inspection and Yes atraumatic <SCAR Motta - Last Filed: 11/07/22 17:51> Ears: hearing grossly normal bilaterally <SCAR Motta - Last Filed: 11/07/22 17:51> General nose exam: Normal external nose present <SCAR Motta - Last Filed: 11/07/22 17: 51> Face and sinus: Yes normal facial exam <SCAR Motta - Last Filed: 11/07/22 17:51> Eyes General: appearance normal, both eyes and all related structures <SCAR Motta - Last Filed: 11/07/22 17:51> EOM: EOMs intact bilaterally <SCAR Motta - Last Filed: 11/07/22 17:51> Neck Neck: Yes normal visual inspection and Yes no meningeal signs <SCAR Motta - Last Filed: 11/07/22 17:51> Resp Effort & Inspection: normal respiratory effort and no respiratory distress <SCAR Motta Last Filed: 11/07/22 17:51> Auscultation: clear to auscultation bilaterally, no crackles and no rales <Courtney Hollingsworth PA - Last Filed: 11/07/22 17:51> Cardio Rate: regular rate <Courtney Hollingsworth PA - Last Filed: 11/07/22 17:51> Heart sounds: S1 normal heart sound present and S2 normal heart sound present <Courtney Hollingsworth PA - Last Filed: 11/07/22 17:51> GI Inspection: Yes normal to inspection <Courtney Hollingsworth PA - Last Filed: 11/07/22 17:51> Palpation (GI): Soft to palpation, nontender, no guarding and not rigid <Courtney Hollingsworth PA - Last Filed: 11/07/22 17:51> Skin Rashes: no rashes <Courtney Hollingsworth PA - Last Filed: 11/07/22 17:51> Wounds: no wounds <Courtney Hollingsworth PA - Last Filed: 11/07/22 17:51> Neuro General: patient oriented x3, tone normal and no meningeal signs <Courtney Hollingsworth PA - Last Filed: 11/07/22 17:51> Gait exam (Neuro): Normal gait present <Courtney Hollingsworth PA - Last Filed: 11/07/22 17:51> Extrem General: Yes normal to inspection <Courtney Hollingsworth PA - Last Filed: 11/07/22 17:51> Psych Appearance: grossly normal <Courtney Hollingsworth PA - Last Filed: 11/07/22 17:51> Affect: normal affect <Courtney Hollingsworth PA - Last Filed: 11/07/22 17:51> Attitude: cooperative <Courntey Hollingsworth PA - Last Filed: 11/07/22 17:51> Thought process: Normal thought process present <Courtney Hollingsworth PA - Last Filed: 11/07/22 17:51> Thought content: suicidality and no homicidality <Courtney Hollingsworth PA - Last Filed: 11/07/22 17:51> Course Course Course Narrative: 42-year-old female presents for evaluation of medical clearance to return to detox. Patient apparently was missing from her program for the last week and a half. Per staff at her facility, ?she use a resource to polysubstance and prostitution. Staff is requesting a test for her to return as well as medical clearance <Amrik Watson - Last Filed: 11/07/22 12:26> 42-year-old female presents for evaluation of medical clearance to return to detox. Patient apparently was missing from her program for the last week and a half. Per staff at her facility, ?she use a resource to polysubstance and prostitution. Staff is requesting a test for her to return as well as medical clearance -1547--labs unremarkable. negative. Tox screen positive for cocaine. Patient medically cleared to return to her facility Results discussed with patient including worrisome signs and symptoms and strict return precautions, and when to return to the emergency department. They verbalized understanding and feel safe for discharge at this time. <SCAR Motta - Last Filed: 11/07/22 17:51> Medical Decision Making Medical Decision Making MDM Narrative: 42-year-old female with a past medical history of depression presenting to the ED for medical clearance to return back to [facility] with CHD. On exam mildly tachycardic, NAD, nontoxic appearing, denies SI/HI. Denies any known trauma/fall or injury. Rule out substance abuse and metabolic/infectious etiologies Plan: Labs, UA, drug screen, COVID testing Please refer to course for remaining clinical decision making, interpretation of labs/imaging results, and discussions with consultants and/or family members. <SCAR Motta - Last Filed: 11/07/22 17:51> Differential Diagnosis Differential Diagnoses: The differential diagnosis associated with the presentation includes <SCAR Motta - Last Filed: 11/07/22 17:51> As above <SCAR Motta - Last Filed: 11/07/22 17:51> Admission/Observation Consideration of admission/observation: Escalation of care including admission/observation considered <SCAR Motta Last Filed: 11/07/22 17:51> Lab Data [facility] Lab Attestation statement: I reviewed the patient's lab results. <SCAR Motta - Last Filed: 11/07/22 17:51> Result Diagrams: 11/07/22 12:35 11/07/22 12:35 <Amrik Watson - Last Filed: 11/07/22 12:26> Labs: Lab Results 11/07/22 11/07/22 11/07/22 Range/Units 12:35 12:35 12:35 WBC 7.3 (4.8-10.8) X10*3/uL RBC 4.96 (4.20-5.50) X10*6/uL Hgb 14.5 (12.0-16.0) g/dl Hct 42.9 (37.0-47.0) % MCV 86.5 (80.0-98.0) fL MCH 29.2 (27.0-33.0) pg MCHC 33.8 (31.0-35.0) g/dl RDW 12.8 (11.0-16.0) % Plt Count 269 D (160-400) X10*3/uL MPV 11.5 (9.4-12.3) fL Immature Gran % (Auto) 0.3 (0.0-0.4) % Neut % (Auto) 56.3 (45-73) % Lymph % (Auto) 34.8 (20-40) % [place] % (Auto) 6.5 (2-11) % Eos % (Auto) 1.5 (0-4) % Baso % (Auto) 0.6 (0-2) % Lymph # (Auto) 2.5 (1.2-4.9) X10*3/uL [place] # (Auto) 0.5 (0.1-1.2) X10*3/uL Eos # (Auto) 0.1 (0.0-0.4) X10*3/uL Baso # (Auto) 0.0 (0.0-0.2) X10*3/uL Abs Immat Gran (auto) 0.02 (0.00-0.03) X10*3/uL Absolute Neuts (auto) 4.1 (2.0-8.3) x10*3/uL Absolute Nucleated RBC 0.000 (0.0-0.012) X10*3/uL Nucleated RBC % (auto) 0.0 (0.0-0.2) /100WBC Sodium 140 (135-145) mmol/L Potassium 4.1 (3.3-5.1) mmol/L Chloride 107 (96-108) mmol/L Carbon Dioxide 24 (22-29) mmol/L Anion Gap 13 (12-20) BUN 17 H (9-16) mg/dL Creatinine 0.75 (0.5-1.4) mg/dL Estim Creat Clear Calc 82.5 Estimated GFR > 60 Random Glucose 99 (60-115) mg/dL Calcium 9.2 (8.4-10.2) mg/dL Total Bilirubin 0.8 (0.0-1.0) mg/dL AST 21 (5-31) U/L ALT 20 (0-31) U/L Alkaline Phosphatase 80 (39-117) U/L Total Protein 7.2 (6.5-8.0) g/dL Albumin 4.4 (3.5-5.0) g/dL Beta HCG, Quant < 2 mIU/mL Urine Color Urine Appearance Urine pH (5.0-9.0) Ur Specific [place] (1.005-1.025) Urine Protein (Neg-Trace) mg/dL Urine Glucose (UA) (Negative) mg/dL Urine Ketones (Negative) mg/dL Urine Blood (Negative) Urine Nitrite (Negative) Ur Leukocyte Esterase (Negative) Urine RBC (0-2) /HPF Urine WBC (0-5) /HPF Ur Squamous Epith Cells (0-2) /HPF Urine Bacteria (None Seen) Hyaline Casts (0-2) /LPF Salicylates < 5.0 L (15-30) mg/dL Urine Opiates Screen (Not Detect) Urine Fentanyl Screen (Not Detect) Acetaminophen < 17 (<30) mcg/mL Ur Barbiturates Screen (Not Detect) Ur Phencyclidine Scrn (Not Detect) Ur Amphetamines Screen (Not Detect) U Benzodiazepines Scrn (Not Detect) Urine Cocaine Screen (Not Detect) U Marijuana (THC) Screen (Not Detect) Ethyl Alcohol < 10 mg/dL COVID-19 (BEV) (Negative) COVID-19 Clin Com 11/07/22 11/07/22 11/07/22 Range/Units 12:39 12:39 14:21 WBC (4.8-10.8) X10*3/uL RBC (4.20-5.50) X10*6/uL Hgb (12.0-16.0) g/dl Hct (37.0-47.0) % MCV (80.0-98.0) fL MCH (27.0-33.0) pg MCHC (31.0-35.0) g/dl RDW (11.0-16.0) % Plt Count (160-400) X10*3/uL MPV (9.4-12.3) fL Immature Gran % (Auto) (0.0-0.4) % Neut % (Auto) (45-73) % Lymph % (Auto) (20-40) % [place] % (Auto) (2-11) % Eos % (Auto) (0-4) % Baso % (Auto) (0-2) % Lymph # (Auto) (1.2-4.9) X10*3/uL [place] # (Auto) (0.1-1.2) X10*3/uL Eos # (Auto) (0.0-0.4) X10*3/uL Baso # (Auto) (0.0-0.2) X10*3/uL Abs Immat Gran (auto) (0.00-0.03) X10*3/uL Absolute Neuts (auto) (2.0-8.3) x10*3/uL Absolute Nucleated RBC (0.0-0.012) X10*3/uL Nucleated RBC % (auto) (0.0-0.2) /100WBC Sodium (135-145) mmol/L Potassium (3.3-5.1) mmol/L Chloride (96-108) mmol/L Carbon Dioxide (22-29) mmol/L Anion Gap (12-20) BUN (9-16) mg/dL Creatinine (0.5-1.4) mg/dL Estim Creat Clear Calc Estimated GFR Random Glucose (60-115) mg/dL Calcium (8.4-10.2) mg/dL Total Bilirubin (0.0-1.0) mg/dL AST (5-31) U/L ALT (0-31) U/L Alkaline Phosphatase (39-117) U/L Total Protein (6.5-8.0) g/dL Albumin (3.5-5.0) g/dL Beta HCG, Quant mIU/mL Urine Color Dark Yellow Urine Appearance Cloudy Urine pH 6.5 (5.0-9.0) Ur Specific [place] >= 1.030 H (1.005-1.025) Urine Protein 30 (1+) H (Neg-Trace) mg/dL Urine Glucose (UA) Negative (Negative) mg/dL Urine Ketones Trace (Negative) mg/dL Urine Blood Negative (Negative) Urine Nitrite Negative (Negative) Ur Leukocyte Esterase Small (1+) H (Negative) Urine RBC 0-2 (0-2) /HPF Urine WBC 0-5 (0-5) /HPF Ur Squamous Epith Cells >20 (0-2) /HPF Urine Bacteria 2+ (None Seen) Hyaline Casts 0-2 (0-2) /LPF Salicylates (15-30) mg/dL Urine Opiates Screen Not Detected (Not Detect) Urine Fentanyl Screen Not Detected (Not Detect) Acetaminophen (<30) mcg/mL Ur Barbiturates Screen Not Detected (Not Detect) Ur Phencyclidine Scrn Not Detected (Not Detect) Ur Amphetamines Screen Not Detected (Not Detect) U Benzodiazepines Scrn Not Detected (Not Detect) Urine Cocaine Screen POSITIVE H (Not Detect) U Marijuana (THC) Screen Not Detected (Not Detect) Ethyl Alcohol mg/dL COVID-19 (BEV) Negative (Negative) COVID-19 Clin Com See Note <Amrik Watson - Last Filed: 11/07/22 12:26> Lab Results 11/07/22 11/07/22 11/07/22 Range/Units 12:35 12:35 12:35 WBC 7.3 (4.8-10.8) X10*3/uL RBC 4.96 (4.20-5.50) X10*6/uL Hgb 14.5 (12.0-16.0) g/dl Hct 42.9 (37.0-47.0) % MCV 86.5 (80.0-98.0) fL MCH 29.2 (27.0-33.0) pg MCHC 33.8 (31.0-35.0) g/dl RDW 12.8 (11.0-16.0) % Plt Count 269 D (160-400) X10*3/uL MPV 11.5 (9.4-12.3) fL Immature Gran % (Auto) 0.3 (0.0-0.4) % Neut % (Auto) 56.3 (45-73) % Lymph % (Auto) 34.8 (20-40) % [place] % (Auto) 6.5 (2-11) % Eos % (Auto) 1.5 (0-4) % Baso % (Auto) 0.6 (0-2) % Lymph # (Auto) 2.5 (1.2-4.9) X10*3/uL [place] # (Auto) 0.5 (0.1-1.2) X10*3/uL Eos # (Auto) 0.1 (0.0-0.4) X10*3/uL Baso # (Auto) 0.0 (0.0-0.2) X10*3/uL Abs Immat Gran (auto) 0.02 (0.00-0.03) X10*3/uL Absolute Neuts (auto) 4.1 (2.0-8.3) x10*3/uL Absolute Nucleated RBC 0.000 (0.0-0.012) X10*3/uL Nucleated RBC % (auto) 0.0 (0.0-0.2) /100WBC Sodium 140 (135-145) mmol/L Potassium 4.1 (3.3-5.1) mmol/L Chloride 107 (96-108) mmol/L Carbon Dioxide 24 (22-29) mmol/L Anion Gap 13 (12-20) BUN 17 H (9-16) mg/dL Creatinine 0.75 (0.5-1.4) mg/dL Estim Creat Clear Calc 82.5 Estimated GFR > 60 Random Glucose 99 (60-115) mg/dL Calcium 9.2 (8.4-10.2) mg/dL Total Bilirubin 0.8 (0.0-1.0) mg/dL AST 21 (5-31) U/L ALT 20 (0-31) U/L Alkaline Phosphatase 80 (39-117) U/L Total Protein 7.2 (6.5-8.0) g/dL Albumin 4.4 (3.5-5.0) g/dL Beta HCG, Quant < 2 mIU/mL Urine Color Urine Appearance Urine pH (5.0-9.0) Ur Specific [place] (1.005-1.025) Urine Protein (Neg-Trace) mg/dL Urine Glucose (UA) (Negative) mg/dL Urine Ketones (Negative) mg/dL Urine Blood (Negative) Urine Nitrite (Negative) Ur Leukocyte Esterase (Negative) Urine RBC (0-2) /HPF Urine WBC (0-5) /HPF Ur Squamous Epith Cells (0-2) /HPF Urine Bacteria (None Seen) Hyaline Casts (0-2) /LPF Salicylates < 5.0 L (15-30) mg/dL Urine Opiates Screen (Not Detect) Urine Fentanyl Screen (Not Detect) Acetaminophen < 17 (<30) mcg/mL Ur Barbiturates Screen (Not Detect) Ur Phencyclidine Scrn (Not Detect) Ur Amphetamines Screen (Not Detect) U Benzodiazepines Scrn (Not Detect) Urine Cocaine Screen (Not Detect) U Marijuana (THC) Screen (Not Detect) Ethyl Alcohol < 10 mg/dL COVID-19 (BEV) (Negative) COVID-19 Clin Com 11/07/22 11/07/22 11/07/22 Range/Units 12:39 12:39 14:21 WBC (4.8-10.8) X10*3/uL RBC (4.20-5.50) X10*6/uL Hgb (12.0-16.0) g/dl Hct (37.0-47.0) % MCV (80.0-98.0) fL MCH (27.0-33.0) pg MCHC (31.0-35.0) g/dl RDW (11.0-16.0) % Plt Count (160-400) X10*3/uL MPV (9.4-12.3) fL Immature Gran % (Auto) (0.0-0.4) % Neut % (Auto) (45-73) % Lymph % (Auto) (20-40) % [place] % (Auto) (2-11) % Eos % (Auto) (0-4) % Baso % (Auto) (0-2) % Lymph # (Auto) (1.2-4.9) X10*3/uL [place] # (Auto) (0.1-1.2) X10*3/uL Eos # (Auto) (0.0-0.4) X10*3/uL Baso # (Auto) (0.0-0.2) X10*3/uL Abs Immat Gran (auto) (0.00-0.03) X10*3/uL Absolute Neuts (auto) (2.0-8.3) x10*3/uL Absolute Nucleated RBC (0.0-0.012) X10*3/uL Nucleated RBC % (auto) (0.0-0.2) /100WBC Sodium (135-145) mmol/L Potassium (3.3-5.1) mmol/L Chloride (96-108) mmol/L Carbon Dioxide (22-29) mmol/L Anion Gap (12-20) BUN (9-16) mg/dL Creatinine (0.5-1.4) mg/dL Estim Creat Clear Calc Estimated GFR Random Glucose (60-115) mg/dL Calcium (8.4-10.2) mg/dL Total Bilirubin (0.0-1.0) mg/dL AST (5-31) U/L ALT (0-31) U/L Alkaline Phosphatase (39-117) U/L Total Protein (6.5-8.0) g/dL Albumin (3.5-5.0) g/dL Beta HCG, Quant mIU/mL Urine Color Dark Yellow Urine Appearance Cloudy Urine pH 6.5 (5.0-9.0) Ur Specific [place] >= 1.030 H (1.005-1.025) Urine Protein 30 (1+) H (Neg-Trace) mg/dL Urine Glucose (UA) Negative (Negative) mg/dL Urine Ketones Trace (Negative) mg/dL Urine Blood Negative (Negative) Urine Nitrite Negative (Negative) Ur Leukocyte Esterase Small (1+) H (Negative) Urine RBC 0-2 (0-2) /HPF Urine WBC 0-5 (0-5) /HPF Ur Squamous Epith Cells >20 (0-2) /HPF Urine Bacteria 2+ (None Seen) Hyaline Casts 0-2 (0-2) /LPF Salicylates (15-30) mg/dL Urine Opiates Screen Not Detected (Not Detect) Urine Fentanyl Screen Not Detected (Not Detect) Acetaminophen (<30) mcg/mL Ur Barbiturates Screen Not Detected (Not Detect) Ur Phencyclidine Scrn Not Detected (Not Detect) Ur Amphetamines Screen Not Detected (Not Detect) U Benzodiazepines Scrn Not Detected (Not Detect) Urine Cocaine Screen POSITIVE H (Not Detect) U Marijuana (THC) Screen Not Detected (Not Detect) Ethyl Alcohol mg/dL COVID-19 (BEV) Negative (Negative) COVID-19 Clin Com See Note <SCAR Motta - Last Filed: 11/07/22 17:51> Radiology Impression Discussion of test interpretation with radiology: I have reviewed the radiologist's reading. <SCAR Motta - Last Filed: 11/07/22 17:51> External Record Review External record reviewed: Inpatient record, Office record, Outpatient record, Prior outpatient labs, Prior outpatient radiology, Primary care record and Outside ED record <SCAR Motta - Last Filed: 11/07/22 17:51> Discharge Plan Discharge Clinical Impression: Medical clearance for psychiatric admission <Amrik Watson - Last Filed: 11/07/22 12:26> Patient Disposition: Home, Self-Care <Amrik Watson - Last Filed: 11/07/22 12:26> Instructions: Medical Clearance for Psychiatric Care (ED) <Amrik Watson - Last Filed: 11/07/22 12:26> Additional Instructions: Your medically cleared to return to [facility] Please avoid drug and alcohol use. Continue all home prescribed medications If you have thoughts of hurting herself or others return to the ED <Amrik Watson - Last Filed: 11/07/22 12:26> Prescriptions: No Action nicotine 14 mg/24 hr Patch 24 Hour 14 mg transdermal DAILY Qty: 30 0RF Invega Sustenna 234 mg/1.5 mL syringe 234 mg IM Q30D Qty: 1.5 0RF Rx Instructions: Next dose on 12/31/2021 risperidone 2 mg tablet 2 mg PO BID benztropine 0.5 mg tablet 0 mg PO melatonin 3 mg tablet 3 mg PO BEDTIME albuterol sulfate 90 mcg/actuation HFA aerosol inhaler 0 mcg inhalation meloxicam 15 mg tablet 15 mg PO DAILY Qty: 14 0RF <Amrik Watson - Last Filed: 11/07/22 12:26> Referrals[facility] [Provider Group] [facility] [Outside] <Amrik Watson - Last Filed: 11/07/22 12:26> Interventions: [place]-Suicide Risk Severity Scale Last Done: 11/07/22 15:48 ED Discharge Assessment Last Done: 11/07/22 16:07 <Amrik Watson - Last Filed: 11/07/22 12:26> Discharge Date/Time: 11/07/22 14:10 <Amrik Watson - Last Filed: 11/07/22 12:26>
[2022-11-07 12:49] LABS: MANUAL DIFF FLAG NO
[2022-11-07 12:52] LABS: Basophils Percent Auto 0.6 % (0-2); Eosinophils Absolute Auto 0.1 X10*3/uL (0.0-0.4); Eosinophils Percent Auto 1.5 % (0-4); Hematocrit 42.9 % (37.0-47.0); Hemoglobin 14.5 g/dl (12.0-16.0); Imm Gran Abs Auto 0.02 X10*3/uL (0.00-0.03); Imm Gran Pct Auto 0.3 % (0.0-0.4); Lymphocytes Absolute Auto 2.5 X10*3/uL (1.2-4.9); Lymphocytes Percent Auto 34.8 % (20-40); Mean Corpuscular HGB Conc 33.8 g/dl (31.0-35.0); Mean Corpuscular Hemoglobin 29.2 pg (27.0-33.0); Mean Corpuscular Volume 86.5 fL (80.0-98.0); Mean Platelet Volume 11.5 fL (9.4-12.3); Monocytes Absolute Auto 0.5 X10*3/uL (0.1-1.2); Monocytes Percent Auto 6.5 % (2-11); Neutrophils Absolute Auto 4.1 x10*3/uL (2.0-8.3); Neutrophils Percent Auto 56.3 % (45-73); Platelet Count 269 X10*3/uL (160-400); Red Blood Count 4.96 X10*6/uL (4.20-5.50); Red Cell Distribution Width 12.8 % (11.0-16.0); White Blood Count 7.3 X10*3/uL (4.8-10.8)
[2022-11-07 12:52] LABS: Appearance Urine Cloudy; Color Urine Dark Yellow; Glucose Urine UA Negative (Negative); Leukocyte Esterase Urine Small (1+) (Negative); Nitrite Urine Negative (Negative); PH 6.5 (5.0-9.0); Specific Gravity - Urine >= 1.030 (1.005-1.025); UMIC TRIGGER UACC YES; Urine Blood Negative (Negative); Urine Ketones Trace mg/dL (Negative); Urine Protein 30 (1+) mg/dL (Neg-Trace)
[2022-11-07 13:01] LABS: Amphetamine Screen Urine Not Detected (Not Detect); Barbiturates, Urine Not Detected (Not Detect); Benzodiazepines Screen Urine Not Detected (Not Detect); Cannabinoid Screen Urine Not Detected (Not Detect); Cocaine Screen Urine POSITIVE (Not Detect); Fentanyl, urine Not Detected (Not Detect); Opiate Screen Urine Not Detected (Not Detect); Phencyclidine Screen Urine Not Detected (Not Detect)
[2022-11-07 13:03] LABS: Bacteria Urine 2+ (None Seen); Hyaline Casts Urine 0-2 /LPF (0-2); RBC Urine 0-2 /HPF (0-2); Squamous Epithelial Cell Urine >20 /HPF (0-2); UACC Culture Trigger YES; WBC Urine 0-5 /HPF (0-5)
[2022-11-07 13:12] LABS: Acetaminophen LAB < 17 mcg/mL (<30); Alanine Aminotransferase 20 U/L (0-31); Albumin Level 4.4 g/dL (3.5-5.0); Alkaline Phosphatase 80 U/L (39-117); Anion Gap 13 (12-20); Aspartate Amino Transferase 21 U/L (5-31); Bilirubin Total 0.8 mg/dL (0.0-1.0); Blood Urea Nitrogen 17 mg/dL (9-16); Calcium 9.2 mg/dL (8.4-10.2); Carbon Dioxide 24 mmol/L (22-29); Chloride 107 mmol/L (96-108); Creatinine Clr Calc Pharmacy 82.5; Estimated Glomerular Filt Rate > 60; Ethanol < 10 mg/dL; Glucose Random 99 mg/dL (60-115); Potassium 4.1 mmol/L (3.3-5.1); Salicylate < 5.0 mg/dL (15-30); Sodium 140 mmol/L (135-145); Total Protein 7.2 g/dL (6.5-8.0)
[2022-11-07 13:28] LABS: HCG Quantitative < 2 mIU/mL
[2022-11-07 14:54] LABS: COVID-19 Test Negative (Negative); IDNOW Serial# BCCEAD1C
== END 2022-11-07 14:10 | disposition home or self-care (01) ==
PROVIDERS: Physician Assistant; Emergency Provider Emergency Medicine; PCP Student in an Organized Health Care Education/Training Program
DX: Z02.2 Encounter for examination for admission to residential institution (principal); F14.90 Cocaine use, unspecified, uncomplicated; R00.0 Tachycardia, unspecified; F25.9 Schizoaffective disorder, unspecified; F17.200 Nicotine dependence, unspecified, uncomplicated; Z91.14 Patient's other noncompliance with medication regimen; Z20.822 Contact with and (suspected) exposure to COVID-19
CPT/HCPCS: 36415; 80053; 80143; 80179; 80307; 81001; 82077; 84702; 85025; 87086; 87635; 93005; 99284